=== PATIENT | male | born 1980 | race Caucasian/White ===

== ENCOUNTER 2018-06-20 11:33 | Emergency (ER) | payer SELFPAY ==
[~2018-06-20] VITALS: Ht 177.8 cm; Wt 68.5 kg
--- NOTE | ~2018-06-20 | EKG ---
[place], [place] ELECTROCARDIOGRAM REPORT NAME: EFFIE HU UNIT #: [id number] ROOM: DOCTOR: EPIPHANY DRAFT REPORT BIRTHDATE: [birth year] [facility] Test Date: 2018-06-20 Test Time: 11:53:02 Pat Name: EFFIE HU Department: Room: [facility] Gender: M Transit Planning Manager: Justina Bauer : 1980 Requested By: TONYA SIERRA Order Number: [id number] Reading MD: Nakul Milligan MD Measurements Intervals [place] Rate: 109 P: 46 ID: 151 QRS: 40 QRSD: 105 T: -16 QT: 373 QTc: 503 Interpretive Statements Sinus tachycardia Probable left atrial enlargement Lateral infarct, acute (LAD) Probable anteroseptal infarct, recent Prolonged QT interval Electronically Signed On 06-22-2018 9:47:35 PST by Nakul Milligan MD CM:EKGRPT:ELECTROCARDIOGRAM REPORT [id number] TONYA RODAS DRAFT REPORT TONYA SIERRA DO
--- NOTE | ~2018-06-20 | EKG ---
[place], [place] ELECTROCARDIOGRAM REPORT NAME: EFFIE HU UNIT #: [id number] ROOM: DOCTOR: EPIPHANY DRAFT REPORT BIRTHDATE: [birth year] [facility] Test Date: 2018-06-20 Test Time: 12:59:35 Pat Name: EFFIE HU Department: Room: [facility]C Gender: M Water Use Inspector: Noam Lennon : 1980 Requested By: TONYA SIERRA Order Number: [id number] Reading MD: Nakul Milligan MD Measurements Intervals [place] Rate: 112 P: 62 SC: 163 QRS: 37 QRSD: 107 T: -27 QT: 365 QTc: 499 Interpretive Statements Sinus tachycardia Left atrial enlargement Lateral infarct, acute (LAD) Probable anteroseptal infarct, recent Baseline wander in lead(s) V6 Electronically Signed On 06-22-2018 9:47:48 PST by Nakul Milligan MD CM:EKGRPT:ELECTROCARDIOGRAM REPORT [id number] TONYA RODAS DRAFT REPORT TONYA SIERRA DO
[2018-06-20 12:04] LABS: BASO # 0.1 10*3/uL (0.0-0.1); BASO % 0.3 % (0.0-1.0); EOS # 0.1 10*3/uL (0.0-0.4); EOS % 0.7 % (1.0-4.0); HEMATOCRIT 46.6 % (42.0-52.0); HEMOGLOBIN 15.5 g/dl (14.0-18.0); LYMPH # 1.6 10*3/uL (1.3-4.4); LYMPH % 10.7 % (27.0-41.0); MEAN CELL VOLUME 90.8 fl (80.0-94.0); MEAN CORPUSCULAR HGB 30.2 pg (27.0-31.0); MEAN CORPUSCULAR HGB CONC 33.3 g/dl (33.0-37.0); MEAN PLATELET VOLUME 10.1 fl (9.6-12.3); MONO # 0.9 10*3/uL (0.1-1.0); MONO % 6.1 % (3.0-9.0); NEUT # 12.5 10*3/uL (2.3-7.9); NEUT % 81.4 % (47.0-73.0); PLATELET COUNT AUTOMATED 398 10*3/uL (130-400); RED BLOOD COUNT 5.13 10*6/uL (4.50-5.90); RED CELL DISTRI WIDTH 12.7 % (0-14.5); WHITE BLOOD COUNT 15.4 10*3/uL (4.8-10.8)
[2018-06-20 12:12] LABS: ACT PARTIAL THROMBO TIME 43.3 SECONDS (20.8-31.5); INTERNATIONAL NORM RATIO 0.9 (2.0-3.5)
[2018-06-20 12:29] LABS: ALBUMIN 3.2 gm/dl (3.1-4.5); ALKALINE PHOSPHATASE 96 U/L (45-117); BUN 20 mg/dl (7-24); CHLORIDE 101 mmol/L (98-107); CREATININE 1.16 mg/dL (0.70-1.30); LIPASE 49 U/L (73-393); POTASSIUM 4.5 mmol/L (3.5-5.1); SGOT/AST 8 IU/L (3-35); SGPT/ALT 16 U/L (12-78); SODIUM 131 mmol/L (136-145); TOTAL PROTEIN 8.6 gm/dL (6.4-8.2)
[2018-08-30] MEDS ORDERED: ASPIRIN ADULT L81 M2 PO (20:43)
[2018-08-30] MEDS ORDERED: LISINOPRIL5 MG PO (20:44)
[2018-08-30] MEDS ORDERED: CLOPIDOGREL75 MG PO (20:44)
[2018-08-30] MEDS ORDERED: ALDACTONE25 MG PO (20:44)
[2018-08-30] MEDS ORDERED: ATORVASTATIN CA80 M1 PO (20:45)
[2018-08-30] MEDS ORDERED: METOPROLOL SUC100 M1 PO (20:45)
[2018-08-30] MEDS ORDERED: METOPROLOL SUCC50 M1 PO (20:46)
[2018-08-30] MEDS ORDERED: BASAG SOL SC (20:48)
[2018-08-30] MEDS ORDERED: NOVOLOG100 UNIT/1 SQ (20:55)
[2018-09-01] MEDS ORDERED: LISINOPRIL2.5 MG PO (13:05)
[2018-09-01] MEDS ORDERED: METOPROLOL SUCC25 M2 PO (13:05)
[2018-09-01] MEDS ORDERED: ALDACTONE25 MG PO (13:05)
== END 2018-06-20 13:50 | disposition short-term general hospital (02) ==
LOC: ED 11:33
PROVIDERS: Emergency Medicine
DX: I21.3 ST elevation (STEMI) myocardial infarction of unspecified site (principal); E11.10 Type 2 diabetes mellitus with ketoacidosis without coma; Z90.49 Acquired absence of other specified parts of digestive tract

== ENCOUNTER 2018-10-03 13:22 | Inpatient (IN) | payer SELFPAY ==
[2018-10-03] VITALS (7 sets, daily range): BP systolic 112–132; BP diastolic 79–92
[~2018-10-03] VITALS: Ht 177.8 cm; Wt 68.9 kg
--- NOTE | ~2018-10-03 | EKG ---
[place], [place] ELECTROCARDIOGRAM REPORT NAME: EFFIE HU UNIT #: [id number] ROOM: 519 DOCTOR: ANNA DRAFT REPORT BIRTHDATE: [birth year] [facility] Test Date: 2018-10-03 Test Time: 19:46:13 Pat Name: EFFIE HU Department: Room: 519 Gender: M Internet Manager: : 1980 Requested By: TONYA SIERRA Order Number: [id number] Reading MD: Michael Lewis MD Measurements Intervals [place] Rate: 106 P: 52 OR: 168 QRS: -7 QRSD: 109 T: 64 QT: 362 QTc: 481 Interpretive Statements Sinus tachycardia ST elevation suggests acute pericarditis Borderline prolonged QT interval Baseline wander in lead(s) I,II,III,aVR,aVL,V1,V2,V6 Compared to ECG 08/30/2018 22:42:13 Sinus rhythm no longer present ST (T wave) deviation still present Electronically Signed On 10-04-2018 15:46:13 PDT by Michael Lewis MD CM:EKGRPT:ELECTROCARDIOGRAM REPORT [id number] TONYA RODAS DRAFT REPORT TONAY SIERRA DO
--- NOTE | ~2018-10-03 | EKG ---
[place], [place] ELECTROCARDIOGRAM REPORT NAME: EFFIE HU UNIT #: [id number] ROOM: 519 DOCTOR: ANNA DRAFT REPORT BIRTHDATE: [birth year] [facility] Test Date: 2018-10-03 Test Time: 16:02:01 Pat Name: EFFIE HU Department: Room: 519 Gender: M Manager Business Information: : 1980 Requested By: TONYA SIERRA Order Number: [id number] Reading MD: Michael Lewis MD Measurements Intervals [place] Rate: 108 P: 54 NV: 166 QRS: 0 QRSD: 106 T: 65 QT: 354 QTc: 475 Interpretive Statements Sinus tachycardia Borderline low voltage, extremity leads Consider anterolateral infarct ST elevation suggests acute pericarditis Baseline wander in lead(s) II,III,aVR,aVF,V3,V4 Compared to ECG 08/30/2018 22:42:13 Myocardial infarct finding now present Sinus rhythm no longer present ST (T wave) deviation still present Electronically Signed On 10-04-2018 15:45:03 PDT by Michael Lewis MD CM:EKGRPT:ELECTROCARDIOGRAM REPORT [id number] TONYA RODAS DRAFT REPORT TONYA SIERRA DO
--- NOTE | ~2018-10-03 | EKG ---
[place], [place] ELECTROCARDIOGRAM REPORT NAME: EFFIE HU UNIT #: [id number] ROOM: 519 DOCTOR: ANNA DRAFT REPORT BIRTHDATE: [birth year] [facility] Test Date: 2018-10-03 Test Time: 13:33:07 Pat Name: EFFIE HU Department: Room: 519 Gender: M Gut Puller: : 1980 Requested By: TONYA SIERRA Order Number: [id number] Reading MD: Michael Lewis MD Measurements Intervals [place] Rate: 101 P: 58 ND: 189 QRS: -9 QRSD: 106 T: 64 QT: 365 QTc: 474 Interpretive Statements Sinus tachycardia Probable left atrial enlargement Anteroseptal infarct, age indeterminate Lateral leads are also involved Baseline wander in lead(s) III Compared to ECG 08/30/2018 22:42:13 Myocardial infarct finding now present Sinus rhythm no longer present ST (T wave) deviation no longer present Electronically Signed On 10-04-2018 15:43:52 PDT by Michael Lewis MD CM:EKGRPT:ELECTROCARDIOGRAM REPORT [id number] TONYA RODAS DRAFT REPORT TONYA SIERRA DO
[~2018-10-03 13:22] MED LIST: ALDACTONE25 MG PO; ASPIRIN ADULT L81 M2 PO; ATORVASTATIN CA80 M1 PO; BASAG SOL SC; CLOPIDOGREL75 MG PO; LISINOPRIL2.5 MG PO; LISINOPRIL5 MG PO; METOPROLOL SUC100 M1 PO; METOPROLOL SUCC25 M2 PO; METOPROLOL SUCC50 M1 PO; NOVOLOG100 UNIT/1 SQ
--- NOTE | 2018-10-03 13:28 | NUR ---
PT NOW C/O CHEST PAIN 10/31 WILL INITIATE ACS
[2018-10-03 13:48] LABS: BASO % 0.1 % (0.0-1.0); EOS # 0.1 10*3/uL (0.0-0.4); EOS % 1.2 % (1.0-4.0); HEMATOCRIT 43.3 % (42.0-52.0); LYMPH # 1.4 10*3/uL (1.3-4.4); LYMPH % 16.1 % (27.0-41.0); MEAN CELL VOLUME 83.6 fl (80.0-94.0); MEAN CORPUSCULAR HGB CONC 34.6 g/dl (33.0-37.0); MEAN PLATELET VOLUME 9.3 fl (9.6-12.3); MONO # 0.8 10*3/uL (0.1-1.0); MONO % 8.8 % (3.0-9.0); NEUT # 6.4 10*3/uL (2.3-7.9); NEUT % 73.6 % (47.0-73.0); PLATELET COUNT AUTOMATED 305 10*3/uL (130-400); RED BLOOD COUNT 5.18 10*6/uL (4.50-5.90); RED CELL DISTRI WIDTH 12.3 % (0-14.5); WHITE BLOOD COUNT 8.7 10*3/uL (4.8-10.8)
[2018-10-03 14:00] LABS: INTERNATIONAL NORM RATIO 0.9 (2.0-3.5)
[2018-10-03 14:05] LABS: ALBUMIN 4.1 gm/dl (3.1-4.5); ALKALINE PHOSPHATASE 81 U/L (45-117); BUN 12 mg/dl (7-24); CHLORIDE 98 mmol/L (98-107); CREATININE 0.73 mg/dL (0.70-1.30); LIPASE 31 U/L (73-393); POTASSIUM 3.9 mmol/L (3.5-5.1); SGOT/AST 12 IU/L (3-35); SGPT/ALT 18 U/L (12-78); SODIUM 136 mmol/L (136-145); TOTAL PROTEIN 8.4 gm/dL (6.4-8.2)
[2018-10-03 14:06] LABS: TROPONIN I < 0.015 ng/ml (<0.045)
--- NOTE | 2018-10-03 16:50 | NUR ---
CCA 37, admitted to , under the services of SEBASTIAN Bill DO with a diagnosis of DIZZINESS, HYPOTENSION, CHEST PAIN R/O LA. Chief complaint is DIZZINESS, HYPOTENSION. Patient arrived via ambulatory from ER. Monitor applied. Initial assessment completed. Vital signs taken and recorded. SEBASTIAN BILL DO notified of admission to the unit. Orders received. See assessment for past medical history, medications and allergies. Patient and/or family oriented to unit. [address] visitation policy reviewed. Clothing/patient valuable form completed. PAIGE RODRIGUEZ
--- NOTE | 2018-10-03 17:00 | NUR ---
MED REC UPDATED PER POLICY.
--- NOTE | 2018-10-03 17:30 | NUR ---
ORTHO'S PERFORMED PER ORDER. SUPINE BP 111/79. HR 111. SITTING BP 114/80. HR 115. STANDING BP 80/52. HR 120'S. PT SYMPTOMATIC WITH STANDING. WILL CONTINUE TO MONTIOR. IVF ORDERED.
--- NOTE | 2018-10-03 17:52 | NUR ---
'S ANSWERING SERVICE NOTIFIED OF CONSULT.
--- NOTE | 2018-10-03 17:54 | NUR ---
NOTIFIED REGARDING POSITIVE ORTHO'S.
--- NOTE | 2018-10-03 20:45 | NUR ---
PATIENT IS RESTING IN BED WITH EASY AND REGULAR RESPERS ON ROOM AIR. ASSESSMENT IS COMPLETE WITH NO C/O OR S/S OF DISTRESS NOTED AT THIS TIME. BED IS LOW, LOCKED, AND CALL LIGHT IS WITHIN REACH. SEE SHIFT ASSESSMENT. Neurological: awake,alert,oriented Respiratory: easy, regular,no distress Breath sounds: clear t/o all lung valente Cough: none noted on assessment Cardiovascular: no problem: NSR/ST per cm, denies cp/pressure, no edema, pp+ Gastrointestinal: Normoactive x4 quads, denies n/v/d/c. abd soft, nt/nd Genito/Urinary: no problem: denies dysuria Musculoskeketal: Ambulatory: steady gait, skin w/d and intact. BS: 240 MICHAEL GONZALEZ A
--- NOTE | 2018-10-03 21:14 | NUR ---
DR. HEATH SIERRA CONTACTED IN REGARDS TO CONTINUING HOME MEDICATIONS.
--- NOTE | 2018-10-03 21:50 | NUR ---
2200 MEDICATIONS GIVEN AT THIS TIME, PATIENT REFUSED LANTUS. CALL LIGHT IS WITHIN REACH.
[2018-10-04] VITALS: BP 90/51
--- NOTE | 2018-10-04 01:58 | NUR ---
Patient sleeping. Respirations relaxed and easy. Siderails up x2. Call light within reach. MICHAEL GONZALEZ
[2018-10-04 06:59] LABS: BASO % 0.5 % (0.0-1.0); EOS # 0.1 10*3/uL (0.0-0.4); EOS % 2.5 % (1.0-4.0); LYMPH # 1.7 10*3/uL (1.3-4.4); LYMPH % 29.4 % (27.0-41.0); MEAN CELL VOLUME 83.6 fl (80.0-94.0); MEAN CORPUSCULAR HGB CONC 34.7 g/dl (33.0-37.0); MEAN PLATELET VOLUME 9.7 fl (9.6-12.3); MONO # 0.7 10*3/uL (0.1-1.0); NEUT # 3.1 10*3/uL (2.3-7.9); NEUT % 55.4 % (47.0-73.0); PLATELET COUNT AUTOMATED 271 10*3/uL (130-400); RED BLOOD COUNT 4.14 10*6/uL (4.50-5.90); RED CELL DISTRI WIDTH 12.3 % (0-14.5); WHITE BLOOD COUNT 5.7 10*3/uL (4.8-10.8)
[2018-10-04 07:01] LABS: HEMATOCRIT 34.6 % (42.0-52.0)
--- NOTE | 2018-10-04 07:06 | NUR ---
EFFIE HU [id number] Please refer to the physician's history and physical for past medical history, comorbid conditions, and allergies. Diagnosis: DIZZINESS HYPOTENSION CHEST PAIN, RULE OUT Ang Score: 20,LOW OR NO RISK WOUND DESCRIPTIONS: Wound Number: 1 Location of the wound: right plantar lateral aspect of foot Thickness: Full Size: 0.3cm x 0.3cm x 0.2cm Tunneling: none Undermining: none Sinus Tract: none Presence of Exudate: Serosanguineous Amount: Light Color: Yellow, red Odor: None Periwound Skin Appearance: callus Wound edges: approximated Pain (associated with wound): none at time of assessment How does patient state this happened? pt stated this happened back in june when he tried to walk from [place] to [place] he developed the area Surface the patient is resting on: Isoflex SKIN PREVENTION RECOMMENDATION: 1. Pressure redistribution support surface as appropriate 2. Elevate heels 3. Remove boots/TEDS every shift and reapply 4. Head of bed 30 degrees as tolerated 5. Assess nutrition and hydration 6. Manage moisture 7. Avoid the use of containment devices while in bed 8. Use absorptive products on surfaces limit layers of linens on bed 9. Turn and reposition every 1-2 hours in bed and every 1 hour in chair as tolerated 10. Weight shifts every 15 minutes while up in chair 11. Offloading with pillows or device to keep heels elevated off bed 12. Monitor skin at least every shift 13. Inspect under medical devices twice a day WOUND TREATMENT RECOMMENDATIONS: Imaging studies to right foot due to wound. Consult podiatry due to non-healing right foot wound. Full thickness guidelines: Cleanse right plantar aspect of foot with nss and apply sureprep around the wound therahoney to wound bed and cover with optifoam gentle.
[2018-10-04 07:08] LABS: BUN 19 mg/dl (7-24); CHLORIDE 102 mmol/L (98-107); POTASSIUM 3.6 mmol/L (3.5-5.1); SGPT/ALT 15 U/L (12-78); SODIUM 139 mmol/L (136-145)
[2018-10-04 07:13] LABS: ALKALINE PHOSPHATASE 66 U/L (45-117); CREATININE 0.55 mg/dL (0.70-1.30); PHOSPHOROUS 4.5 mg/dL (2.5-4.9); SGOT/AST 7 IU/L (3-35); TOTAL PROTEIN 6.5 gm/dL (6.4-8.2)
[2018-10-04 07:51] VITALS: BP 120/79
--- NOTE | 2018-10-04 08:00 | NUR ---
Dr. Gonzalez notified of wound care recommendations.
--- NOTE | 2018-10-04 08:25 | NUR ---
'S OFFICE CALLED AT THIS TIME REGARDING POSSIBLE STRESS TEST TODAY. AWAITING RETURN PHONE CALL.
--- NOTE | 2018-10-04 09:22 | NUR ---
OKAY FOR PATIENT TO EAT BREAKFAST PER . NO STRESS TEST TODAY.
[2018-10-04 11:19] VITALS: BP 126/84
--- NOTE | 2018-10-04 12:12 | NUR ---
Leadership Coach in to talk to patient. Patient states lives at HOME with ALONE, PARENTS LIVE NEXT DOOR. There are 2 steps in the home. Physician: [facility] Pharmacy: [facility] [place] health services: NONE Patient's level of ADLs: INDEPENDENT Patient has working utilities: YES DME: NONE Follow-up physician's appointment after d/c: WILL BE MADE BY HOSPITALIST NURSE DIRECTOR ON DISCHARGE Does patient want to access PORTAL?: NO Discharge plan PT STATES HE LIVES AT HOME ALONE AND IS INDEPENDENT IN CARE. DENIES ANY NEEDS WHEN DISCHARGED. WILL CONTINUE TO FOLLOW. STATES HE WILL HAVE A RIDE HOME.. STEPHANIE LEWIS
[2018-10-04 16:00] VITALS: BP 130/81
[2018-10-04 20:00] VITALS: BP 134/87
[2018-10-05] VITALS: BP 118/81
[2018-10-05 12:00] VITALS: BP 130/73
--- NOTE | 2018-10-05 13:50 | NUR ---
PT CONTINUES TO DENY NEEDS AT HOME. WILL CONTINUE TO FOLLOW.
--- NOTE | 2018-10-05 14:03 | NUR ---
PATIENT DISCHARGED FROM FLOOR. DISCHARGE PAPERWORK WITH PATIENT. NO SIGNS OR SYMPTOMS OF DISTRESS. IV CATHETER REMOVED AND INTACT. TELE MONITOR REMOVED AND ACCOUNTED FOR. AMBULATORY AND ESCORTED TO [facility].
== END 2018-10-05 14:03 | disposition home or self-care (01) | DRG 315 ==
LOC: ED 13:22 → EDHOLD 15:25 → 5E 15:25
PROVIDERS: Emergency Medicine; Registered Nurse; ADMIT Internal Medicine
DX: I95.9 Hypotension, unspecified (principal); I50.32 Chronic diastolic (congestive) heart failure; I25.10 Atherosclerotic heart disease of native coronary artery without angina pectoris; L97.511 Non-pressure chronic ulcer of other part of right foot limited to breakdown of skin; E10.65 Type 1 diabetes mellitus with hyperglycemia; E78.5 Hyperlipidemia, unspecified; I11.0 Hypertensive heart disease with heart failure; R07.9 Chest pain, unspecified; I25.2 Old myocardial infarction; Z79.4 Long term (current) use of insulin; Z79.82 Long term (current) use of aspirin; Z90.49 Acquired absence of other specified parts of digestive tract; Z95.5 Presence of coronary angioplasty implant and graft; Z83.3 Family history of diabetes mellitus; Z82.49 Family history of ischemic heart disease and other diseases of the circulatory system; Z83.6 Family history of other diseases of the respiratory system; Z79.84 Long term (current) use of oral hypoglycemic drugs

== ENCOUNTER 2019-10-13 17:12 | Emergency (ER) | payer SELFPAY ==
[~2019-10-13] VITALS: Ht 175.2 cm; Wt 65.8 kg
[2019-10-13 17:35] LABS: HEMATOCRIT 40.5 % (42.0-52.0); MEAN CELL VOLUME 93.8 fl (80.0-94.0); MEAN CORPUSCULAR HGB CONC 33.1 g/dl (33.0-37.0); MEAN PLATELET VOLUME 9.8 fl (9.6-12.3); PLATELET COUNT AUTOMATED 373 10*3/uL (130-400); RED BLOOD COUNT 4.32 10*6/uL (4.50-5.90); RED CELL DISTRI WIDTH 11.9 % (0-14.5); WHITE BLOOD COUNT 12.8 10*3/uL (4.8-10.8)
[2019-10-13 17:47] LABS: ACT PARTIAL THROMBO TIME 29.3 SECONDS (20.0-32.1); INTERNATIONAL NORM RATIO 0.9 (2.0-3.5)
[2019-10-13 17:51] LABS: ALBUMIN 2.5 gm/dl (3.1-4.5); ALKALINE PHOSPHATASE 91 U/L (45-117); BUN 24 mg/dl (7-24); CHLORIDE 100 mmol/L (98-107); CREATININE 1.29 mg/dL (0.70-1.30); POTASSIUM 4.7 mmol/L (3.5-5.1); SGOT/AST 6 IU/L (3-35); SGPT/ALT 9 U/L (12-78); SODIUM 130 mmol/L (136-145); TOTAL PROTEIN 7.9 gm/dL (6.4-8.2)
[2019-10-13 17:53] LABS: PLATELET SUFFICIENCY NORMAL (NORMAL); TOTAL CELLS COUNTED 100 #CELLS; TROPONIN I < 0.015 ng/ml (<0.045)
== END 2019-10-13 18:10 | disposition short-term general hospital (02) ==
LOC: ED 17:12
PROVIDERS: Emergency Medicine
DX: I21.3 ST elevation (STEMI) myocardial infarction of unspecified site (principal); E11.10 Type 2 diabetes mellitus with ketoacidosis without coma; I25.10 Atherosclerotic heart disease of native coronary artery without angina pectoris; I11.0 Hypertensive heart disease with heart failure; I50.30 Unspecified diastolic (congestive) heart failure; E78.5 Hyperlipidemia, unspecified; Z79.899 Other long term (current) drug therapy; Z79.82 Long term (current) use of aspirin; Z79.4 Long term (current) use of insulin

== ENCOUNTER 2019-10-22 14:12 | Inpatient (IN) | payer SELFPAY ==
[2019-10-22] VITALS (10 sets, daily range): BP systolic 80–97; BP diastolic 50–64
[~2019-10-22] VITALS: Ht 172.7 cm; Wt 80.3 kg
[2019-10-22 14:56] LABS: BASO % 0.3 % (0.0-1.0); EOS # 0.1 10*3/uL (0.0-0.4); HEMATOCRIT 29.5 % (42.0-52.0); LYMPH # 1.5 10*3/uL (1.3-4.4); LYMPH % 14.6 % (27.0-41.0); MEAN CELL VOLUME 93.7 fl (80.0-94.0); MEAN CORPUSCULAR HGB 30.2 pg (27.0-31.0); MEAN CORPUSCULAR HGB CONC 32.2 g/dl (33.0-37.0); MEAN PLATELET VOLUME 9.4 fl (9.6-12.3); MONO # 1.2 10*3/uL (0.1-1.0); MONO % 11.4 % (3.0-9.0); NEUT # 7.6 10*3/uL (2.3-7.9); PLATELET COUNT AUTOMATED 364 10*3/uL (130-400); RED BLOOD COUNT 3.15 10*6/uL (4.50-5.90); RED CELL DISTRI WIDTH 11.8 % (0-14.5); WHITE BLOOD COUNT 10.5 10*3/uL (4.8-10.8)
[2019-10-22 15:11] LABS: ACT PARTIAL THROMBO TIME 29.9 SECONDS (20.0-32.1)
[2019-10-22 15:13] LABS: ALBUMIN 1.9 gm/dl (3.1-4.5); ALKALINE PHOSPHATASE 192 U/L (45-117); BUN 51 mg/dl (7-24); CHLORIDE 93 mmol/L (98-107); CREATININE 1.35 mg/dL (0.70-1.30); LIPASE 21 U/L (73-393); POTASSIUM 4.1 mmol/L (3.5-5.1); SGOT/AST 14 IU/L (3-35); SGPT/ALT 20 U/L (12-78); SODIUM 123 mmol/L (136-145); TOTAL PROTEIN 6.8 gm/dL (6.4-8.2)
[2019-10-22 15:14] LABS: TROPONIN I < 0.015 ng/ml (<0.045)
--- NOTE | 2019-10-22 18:13 | NUR ---
A 38 yr old male, admitted to [facility], under the services of GORDON Richard DO with a diagnosis of DIZZINESS, GI BLEED, AND HYPOTENSION. Chief complaint is weakness and fatigue since starting new meds on discharge from [facility] after a heart cath. Patient arrived via stretcher from ER. Monitor applied. Initial assessment completed. Vital signs taken and recorded. See assessment for past medical history, medications and allergies. Patient and/or family oriented to unit. [facility] visitation policy reviewed. Clothing/patient valuable form completed. SHANE OLMSTEAD
[2019-10-22] MEDS ORDERED: ZESTRIL,PRINIVIL5 MG PO (18:22)
[2019-10-22] MEDS ORDERED: ALDACTONE25 M1 PO (18:24)
[2019-10-22] MEDS ORDERED: NITROSTAT0.4 MG SL (18:25)
[2019-10-22] MEDS ORDERED: HUMALOG JU100 UNIT/1 SQ (18:28)
--- NOTE | 2019-10-22 18:36 | NUR ---
MED REC IS UP TO DATE & REVIEWED WITH THE PATIENT
--- NOTE | 2019-10-22 18:56 | NUR ---
Dr. Pryor was notified of consult. Message was left w/ ans service of Dr. Milligan as to consult.
--- NOTE | 2019-10-22 19:52 | NUR ---
24 HR chart check completed.
--- NOTE | 2019-10-22 20:00 | NUR ---
Patient lying in bed, has complaint of feeling weak. Denies any chest pain. Scd's applied. Patient given boxed lunch due to not eating all day. Patient states he feels dizzy with he gets up out of bed. Patient told to use call light and not get up. Patient sinus on the monitor and hr 80's. BP 90's/50's. Patient left with call light in reach.
[2019-10-22 20:11] LABS: BUN 50 mg/dl (7-24); CHLORIDE 96 mmol/L (98-107); CREATININE 1.07 mg/dL (0.70-1.30); POTASSIUM 3.7 mmol/L (3.5-5.1); SODIUM 125 mmol/L (136-145)
--- NOTE | 2019-10-22 23:18 | NUR ---
Notified Dr. Dewey that patients blood pressure was 80/50(M). and that patient stated he felt like he had to pee but wasnt able. New orders received for 0.9ns bolus of 250 and run the rest at 125/hr.
[2019-10-23] VITALS (82 sets, daily range): BP systolic 70–112; BP diastolic 42–81
--- NOTE | 2019-10-23 00:42 | NUR ---
Reassess of blood pressure, 70/42. notified Dr. Dewey, he will be up to evaulate the patient.
--- NOTE | 2019-10-23 01:20 | NUR ---
Levophed started. Patients inital bp is 90/52, patient also just got off the bedside commode.
[2019-10-23 06:24] LABS: ALBUMIN 1.7 gm/dl (3.1-4.5); BASO % 0.3 % (0.0-1.0); BUN 52 mg/dl (7-24); CHLORIDE 95 mmol/L (98-107); EOS # 0.2 10*3/uL (0.0-0.4); EOS % 1.1 % (1.0-4.0); HEMATOCRIT 29.9 % (42.0-52.0); LYMPH # 1.6 10*3/uL (1.3-4.4); LYMPH % 11.7 % (27.0-41.0); MEAN CELL VOLUME 94.3 fl (80.0-94.0); MEAN CORPUSCULAR HGB 31.2 pg (27.0-31.0); MEAN CORPUSCULAR HGB CONC 33.1 g/dl (33.0-37.0); MEAN PLATELET VOLUME 9.6 fl (9.6-12.3); MONO # 1.3 10*3/uL (0.1-1.0); MONO % 9.9 % (3.0-9.0); NEUT # 10.3 10*3/uL (2.3-7.9); NEUT % 76.3 % (47.0-73.0); RED BLOOD COUNT 3.17 10*6/uL (4.50-5.90); RED CELL DISTRI WIDTH 11.7 % (0-14.5); SODIUM 125 mmol/L (136-145); WHITE BLOOD COUNT 13.5 10*3/uL (4.8-10.8)
[2019-10-23 06:25] LABS: PLATELET COUNT AUTOMATED 544 10*3/uL (130-400)
[2019-10-23 06:30] LABS: ALKALINE PHOSPHATASE 175 U/L (45-117); CHOLESTEROL 64 mg/dL (<200); CREATININE 1.22 mg/dL (0.70-1.30); FREE T4 1.55 ng/dl (0.76-1.46); HDL CHOLESTEROL 17 mg/dl (40-60); LDL CHOLESTEROL 21 mg/dL (9-159); SGOT/AST 10 IU/L (3-35); SGPT/ALT 18 U/L (12-78); TOTAL PROTEIN 6.3 gm/dL (6.4-8.2); TRIGLYCERIDES 129 mg/dl (<150); VLDL CHOLESTEROL 26 mg/dL (6-40)
[2019-10-23 06:54] LABS: ACT PARTIAL THROMBO TIME 30.9 SECONDS (20.0-32.1)
--- NOTE | 2019-10-23 08:25 | NUR ---
DR MARTIN HERE TO SPEAK WITH PT R/T INSERTION OF A CENTRAL LINE. PT AGREED. INFORMED CONSENT SIGNED BY PT.
--- NOTE | 2019-10-23 09:20 | NUR ---
CENTRAL LINE COMPLETED. STAT CXR ORDERED.
--- NOTE | 2019-10-23 10:06 | NUR ---
EFFIE HU [id number] Please refer to the physician's history and physical for past medical history, comorbid conditions, and allergies. Diagnosis: DIZZINESS,GI BLEED,HYPOTENSION Ang Score: ,LOW OR NO RISK WOUND DESCRIPTIONS: Wound Number: 1 Location of the wound: plantar aspect of right foot Type of wound: unstageable Thickness: Full Size: 1.2cm x 1.5cm x <0.1cm Tunneling: none Undermining: none Sinus Tract: none Presence of Exudate: none Amount: None Color: Black, christianson, yellow Odor: None Periwound Skin Appearance: Normal Wound edges: approximated Pain (associated with wound): none at time of assessment How does patient state this happened? pt states he had this area before it healed open and it reopened in June when he was working out at the [facility]. patient states he has no insurance so he is unable to follow up anywhere.He states he will make an appointment once his insurance is avaiable Surface the patient is resting on: Isoflex SKIN PREVENTION RECOMMENDATION: 1. Pressure redistribution support surface as appropriate 2. Elevate heels 3. Remove boots/TEDS every shift and reapply 4. Head of bed 30 degrees as tolerated 5. Assess nutrition and hydration 6. Manage moisture 7. Avoid the use of containment devices while in bed 8. Use absorptive products on surfaces limit layers of linens on bed 9. Turn and reposition every 1-2 hours in bed and every 1 hour in chair as tolerated 10. Weight shifts every 15 minutes while up in chair 11. Offloading with pillows or device to keep heels elevated off bed 12. Monitor skin at least every shift 13. Inspect under medical devices twice a day WOUND TREATMENT RECOMMENDATIONS: Consult podiatry for possible debridement of right plantar aspect of foot. Arterial studies to bilateral lower extremities due to non-healing wound Unstageable guidelines: Cleanse right plantar aspect of foot with nss and paint area with betadine and cover with dsd daily and prn for soiling.
--- NOTE | 2019-10-23 10:30 | NUR ---
DR MARQUES IN TO SEE PT.
--- NOTE | 2019-10-23 10:43 | NUR ---
Dr. Mathews notified of wound care recommendations
--- NOTE | 2019-10-23 12:00 | NUR ---
Check Airman in to talk to patient. Patient states lives at home with his mother who he helps take care of. There are 0 steps in the home. Physician: resident [facility]. He states he has an appt on the . Pharmacy: [facility] Home health services: none Patient's level of ADLs: independent Patient has working utilities: yes DME: none Follow-up physician's appointment after d/c: will be made by the hospitalist nurse director upon discharge Does patient want to access PORTAL?: no Discharge plan discussed with patient. He lives at home and helps take care of his mother. He is independent in his ADLs and ambulation. 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 Asked if Yari from [employer] has spoke to him and he states she had. When medically stable he will be discharged to home. He denies any home needs. He is unsure at this time who will provide transportation discharge. ZOHAIB GARCIA
--- NOTE | 2019-10-23 12:30 | NUR ---
DR ARCEO IN TO SEE PT. STATED WE WOULD TREAT PT MEDICALLY FOR NOW DUE TO RECENT CARDIAC EVENT.
--- NOTE | 2019-10-23 13:36 | NUR ---
Pt bladder scanned for >999cc of urine. Dr Lopes ordered for baxter insertion. Medical student unable to pass #16 indonesian batxer. #16 indonesian cudae baxter inserted with 1000cc dark anup urine returned in baxter. baxter clamped. Urine specimans sent per order.
--- NOTE | 2019-10-23 13:41 | NUR ---
DR LEE NOTIFIED OF PODIATRY CONSULT. HE STATED THEY WILL SEE HIM LATER THIS AFTERNOON.
[2019-10-23 14:04] LABS: BILIRUBIN 1+ (NEGATIVE); BLOOD NEGATIVE (NEGATIVE); CLARITY CLOUDY (CLEAR); COLOR BROWN (YELLOW); GLUCOSE 2+ (NEGATIVE); KETONE NEGATIVE (NEGATIVE); LEUKO ESTERASE NEGATIVE (NEGATIVE); NITRITE NEGATIVE (NEGATIVE); UROBILINOGEN 0.2 E.U./dl (0.2-1.0)
[2019-10-23 14:05] LABS: BACTERIA 2+
--- NOTE | 2019-10-23 16:00 | NUR ---
DR MARQUES CALLED AND SPOKE WITH DR MARTIN. DR MARQUES STATED PT NEEDS TRANSFERED TO [facility]. R/T ECHO RESULTS. DR MARTIN NOTIFIED PT.
[2019-10-23] MEDS ORDERED: VITAMIN D350 MC2 PO (16:25)
[2019-10-23] MEDS ORDERED: COLCHICINE0.6 M2 PO (16:25)
[2019-10-23 16:53] LABS: ALBUMIN 2.2 gm/dl (3.1-4.5); BUN 51 mg/dl (7-24); CHLORIDE 98 mmol/L (98-107); POTASSIUM 4.2 mmol/L (3.5-5.1); SODIUM 126 mmol/L (136-145)
--- NOTE | 2019-10-23 18:20 | NUR ---
DISCHARGE PHOTOS TAKEN. PT SIGNED TRANSFER AND DISCHARGE PAPERS. PT DENIES COMPLAINTS. LEVOPHED CONTINUIES AT 4 MICS/MIN. WILL CONTINUE TO MONITOR PT.
--- NOTE | 2019-10-23 20:00 | NUR ---
PT RESTING IN BED TALKING ON PHONE, A&OX3, PLEASANT AND COOPERATIVE. RESP NONLABORED. NO ACUTE DISTRESS NOTED AT THIS TIME. DENIES ANY PAIN OR DISCOMFORT. RIGHT IJ PATENT, DRESSING DRY AND INTACT, LEVOPHED INFUSING WITHOUT DIFFICULTY. RIVERA PATENT FOR DARK GENEVIEVE URINE. NO S/S OF HYPO/HYPERGLYCEMIA NOTED.
--- NOTE | 2019-10-23 21:15 | NUR ---
[facility] ALL PERSONAL BELONINGS AND PAPERWORK SENT. REPORT CALLED TO TAM SAMANIEGO.
== END 2019-10-23 21:15 | disposition short-term general hospital (02) | DRG 314 ==
LOC: ED 14:12 → EDHOLD 16:48 → ICCU 16:48
PROVIDERS: Hospitalist; Internal Medicine Nephrology; Nurse Practitioner Family; ADMIT Family Medicine
PROC: B54MZZA Ultrasonography of Right Upper Extremity Veins, Guidance (ICD-10-PCS; principal; 2019-10-23)
PROC: 05HY33Z Insertion of Infusion Device into Upper Vein, Percutaneous Approach (ICD-10-PCS; principal; 2019-10-23)
DX: I95.9 Hypotension, unspecified (principal); E43 Unspecified severe protein-calorie malnutrition; E87.1 Hypo-osmolality and hyponatremia; N17.9 Acute kidney failure, unspecified; I50.32 Chronic diastolic (congestive) heart failure; I31.3 Pericardial effusion (noninflammatory); K92.1 Melena; R74.8 Abnormal levels of other serum enzymes; E10.40 Type 1 diabetes mellitus with diabetic neuropathy, unspecified; L89.891 Pressure ulcer of other site, stage 1; D64.9 Anemia, unspecified; E78.2 Mixed hyperlipidemia; I25.10 Atherosclerotic heart disease of native coronary artery without angina pectoris; E10.65 Type 1 diabetes mellitus with hyperglycemia; I25.2 Old myocardial infarction; I11.0 Hypertensive heart disease with heart failure; Z95.5 Presence of coronary angioplasty implant and graft; Z90.49 Acquired absence of other specified parts of digestive tract; Z82.5 Family history of asthma and other chronic lower respiratory diseases; Z82.49 Family history of ischemic heart disease and other diseases of the circulatory system; Z83.3 Family history of diabetes mellitus; Z79.899 Other long term (current) drug therapy; Z68.26 Body mass index [BMI] 26.0-26.9, adult

== ENCOUNTER 2020-05-31 19:54 | Inpatient (IN) | payer MEDICAID ==
[~2020-05-31] VITALS: Ht 182.8 cm; Wt 79.1 kg
[~2020-05-31 19:54] MED LIST changes: +ALDACTONE25 M1 PO; +COLCHICINE0.6 M2 PO; +HUMALOG JU100 UNIT/1 SQ; +NITROSTAT0.4 MG SL; +VITAMIN D350 MC2 PO; +ZESTRIL,PRINIVIL5 MG PO
[2020-05-31 20:00] VITALS: BP 187/106
[2020-05-31 20:49] VITALS: BP 165/105
[2020-05-31 20:57] LABS: BASO % 0.6 % (0.0-1.0); EOS # 0.2 10*3/uL (0.0-0.4); EOS % 3.2 % (1.0-4.0); HEMATOCRIT 34.6 % (42.0-52.0); LYMPH # 1.5 10*3/uL (1.3-4.4); LYMPH % 23.2 % (27.0-41.0); MEAN CELL VOLUME 84.2 fl (80.0-94.0); MEAN CORPUSCULAR HGB CONC 33.2 g/dl (33.0-37.0); MEAN PLATELET VOLUME 9.7 fl (9.6-12.3); MONO # 0.7 10*3/uL (0.1-1.0); MONO % 9.9 % (3.0-9.0); NEUT # 4.2 10*3/uL (2.3-7.9); NEUT % 62.9 % (47.0-73.0); PLATELET COUNT AUTOMATED 319 10*3/uL (130-400); RED BLOOD COUNT 4.11 10*6/uL (4.50-5.90); RED CELL DISTRI WIDTH 11.5 % (0-14.5); WHITE BLOOD COUNT 6.6 10*3/uL (4.8-10.8)
[2020-05-31 21:14] LABS: ALBUMIN 3.1 gm/dl (3.1-4.5); ALKALINE PHOSPHATASE 96 U/L (45-117); BUN 29 mg/dl (7-24); CHLORIDE 102 mmol/L (98-107); CREATININE 0.96 mg/dL (0.70-1.30); POTASSIUM 4.4 mmol/L (3.5-5.1); SGOT/AST 11 IU/L (3-35); SGPT/ALT 16 U/L (12-78); SODIUM 136 mmol/L (136-145); TOTAL PROTEIN 7.9 gm/dL (6.4-8.2)
[2020-05-31 21:55] VITALS: BP 143/87
[2020-06-01 02:05] VITALS: BP 104/81
[2020-06-01 08:00] VITALS: BP 139/86
[2020-06-01 13:03] VITALS: BP 138/76
[2020-06-01 14:18] VITALS: BP 152/81
[2020-06-01 16:00] VITALS: BP 145/87
[2020-06-01 20:00] VITALS: BP 149/84
[2020-06-02] VITALS: BP 133/73
[2020-06-02 06:46] LABS: BASO # 0.1 10*3/uL (0.0-0.1); BASO % 0.7 % (0.0-1.0); EOS # 0.2 10*3/uL (0.0-0.4); EOS % 2.8 % (1.0-4.0); HEMATOCRIT 32.3 % (42.0-52.0); LYMPH # 1.4 10*3/uL (1.3-4.4); LYMPH % 20.3 % (27.0-41.0); MEAN CELL VOLUME 86.4 fl (80.0-94.0); MEAN CORPUSCULAR HGB 27.5 pg (27.0-31.0); MEAN CORPUSCULAR HGB CONC 31.9 g/dl (33.0-37.0); MEAN PLATELET VOLUME 9.7 fl (9.6-12.3); MONO # 0.8 10*3/uL (0.1-1.0); MONO % 10.9 % (3.0-9.0); NEUT # 4.5 10*3/uL (2.3-7.9); PLATELET COUNT AUTOMATED 302 10*3/uL (130-400); RED BLOOD COUNT 3.74 10*6/uL (4.50-5.90); RED CELL DISTRI WIDTH 11.8 % (0-14.5); WHITE BLOOD COUNT 6.9 10*3/uL (4.8-10.8)
[2020-06-02 07:04] LABS: ALBUMIN 2.5 gm/dl (3.1-4.5); BUN 22 mg/dl (7-24); CHLORIDE 109 mmol/L (98-107); CREATININE 0.71 mg/dL (0.70-1.30); POTASSIUM 4.2 mmol/L (3.5-5.1); SGOT/AST 7 IU/L (3-35); SGPT/ALT 13 U/L (12-78); SODIUM 140 mmol/L (136-145)
[2020-06-02 07:06] LABS: ALKALINE PHOSPHATASE 76 U/L (45-117); TOTAL PROTEIN 6.5 gm/dL (6.4-8.2)
[2020-06-02 08:00] VITALS: BP 156/85
[2020-06-02 12:00] VITALS: BP 163/77
[2020-06-02 16:00] VITALS: BP 171/91
[2020-06-02 20:00] VITALS: BP 137/65
[2020-06-03] VITALS: BP 135/82
[2020-06-03 08:00] VITALS: BP 143/85
[2020-06-03] MEDS ORDERED: CIPRO500 MG PO (11:28)
[2020-06-03 12:00] VITALS: BP 138/81
== END 2020-06-03 14:06 | disposition home or self-care (01) | DRG 420 ==
LOC: ED 19:54 → EDHOLD 23:29 → 5E 23:29
PROVIDERS: Emergency Medicine; Internal Medicine; ADMIT Emergency Medicine; ATTEND Emergency Medicine
PROC: 0H9NXZX Drainage of Left Foot Skin, External Approach, Diagnostic (ICD-10-PCS; principal; 2020-05-31)
DX: E10.69 Type 1 diabetes mellitus with other specified complication (principal); S91.332A Puncture wound without foreign body, left foot, initial encounter; I16.0 Hypertensive urgency; L03.116 Cellulitis of left lower limb; I25.10 Atherosclerotic heart disease of native coronary artery without angina pectoris; I50.32 Chronic diastolic (congestive) heart failure; D64.9 Anemia, unspecified; E78.5 Hyperlipidemia, unspecified; I11.0 Hypertensive heart disease with heart failure; E87.8 Other disorders of electrolyte and fluid balance, not elsewhere classified; E10.65 Type 1 diabetes mellitus with hyperglycemia; X58.XXXA Exposure to other specified factors, initial encounter; Y93.89 Activity, other specified; Y92.89 Other specified places as the place of occurrence of the external cause; Y99.8 Other external cause status; Z90.49 Acquired absence of other specified parts of digestive tract; Z82.5 Family history of asthma and other chronic lower respiratory diseases; Z79.82 Long term (current) use of aspirin; Z79.4 Long term (current) use of insulin; I31.4 Cardiac tamponade; E43 Unspecified severe protein-calorie malnutrition; E87.1 Hypo-osmolality and hyponatremia; Z22.321 Carrier or suspected carrier of Methicillin susceptible Staphylococcus aureus

== ENCOUNTER 2021-05-11 07:22 | Inpatient (IN) | payer MEDICAID ==
[~2021-05-11] VITALS: Ht 172.7 cm; Wt 86.2 kg
[~2021-05-11 07:22] MED LIST changes: +CIPRO500 MG PO
[2021-05-11 08:11] VITALS: BP 162/97
[2021-05-11 10:11] LABS: BASO % 0.5 % (0.0-1.0); EOS # 0.2 10*3/uL (0.0-0.4); EOS % 2.6 % (1.0-4.0); HEMATOCRIT 36.4 % (42.0-52.0); LYMPH # 1.4 10*3/uL (1.3-4.4); LYMPH % 17.3 % (27.0-41.0); MEAN CELL VOLUME 83.5 fl (80.0-94.0); MEAN CORPUSCULAR HGB CONC 33.5 g/dl (33.0-37.0); MEAN PLATELET VOLUME 9.7 fl (9.6-12.3); MONO # 0.8 10*3/uL (0.1-1.0); MONO % 10.5 % (3.0-9.0); NEUT # 5.4 10*3/uL (2.3-7.9); NEUT % 68.7 % (47.0-73.0); PLATELET COUNT AUTOMATED 296 10*3/uL (130-400); RED BLOOD COUNT 4.36 10*6/uL (4.50-5.90); RED CELL DISTRI WIDTH 12.9 % (0-14.5); WHITE BLOOD COUNT 7.8 10*3/uL (4.8-10.8)
[2021-05-11 10:21] LABS: ACT PARTIAL THROMBO TIME 25.8 SECONDS (20.0-32.1); INTERNATIONAL NORM RATIO 0.9 (2.0-3.5)
[2021-05-11 10:27] LABS: ALBUMIN 2.5 gm/dl (3.1-4.5); ALKALINE PHOSPHATASE 94 U/L (45-117); BUN 16 mg/dl (7-24); CHLORIDE 109 mmol/L (98-107); CREATININE 0.83 mg/dL (0.70-1.30); LIPASE 27 U/L (73-393); POTASSIUM 3.8 mmol/L (3.5-5.1); SGOT/AST 27 IU/L (3-35); SGPT/ALT 33 U/L (12-78); SODIUM 143 mmol/L (136-145); TOTAL PROTEIN 6.4 gm/dL (6.4-8.2)
[2021-05-11 19:57] VITALS: BP 157/96
[2021-05-11 20:35] VITALS: BP 162/88; BP 165/88
[2021-05-12 00:49] VITALS: BP 126/63
[2021-05-12 06:50] LABS: ALBUMIN 2.4 gm/dl (3.1-4.5); ALKALINE PHOSPHATASE 80 U/L (45-117); BUN 16 mg/dl (7-24); CHLORIDE 111 mmol/L (98-107); CHOLESTEROL 160 mg/dL (<200); CREATININE 0.78 mg/dL (0.70-1.30); LDL CHOLESTEROL 100 mg/dL (9-159); POTASSIUM 3.9 mmol/L (3.5-5.1); SGOT/AST 21 IU/L (3-35); SGPT/ALT 29 U/L (12-78); SODIUM 144 mmol/L (136-145); TRIGLYCERIDES 112 mg/dl (<150)
[2021-05-12 06:54] LABS: THYROID STIM HORMONE (HS) 0.689 uIU/ml (0.358-4.75)
[2021-05-12 06:56] LABS: BASO % 0.5 % (0.0-1.0); EOS # 0.1 10*3/uL (0.0-0.4); EOS % 1.2 % (1.0-4.0); HEMATOCRIT 33.5 % (42.0-52.0); LYMPH # 1.3 10*3/uL (1.3-4.4); LYMPH % 16.1 % (27.0-41.0); MEAN CORPUSCULAR HGB 28.2 pg (27.0-31.0); MEAN CORPUSCULAR HGB CONC 33.1 g/dl (33.0-37.0); MEAN PLATELET VOLUME 10.1 fl (9.6-12.3); MONO # 0.9 10*3/uL (0.1-1.0); MONO % 11.3 % (3.0-9.0); NEUT # 5.7 10*3/uL (2.3-7.9); NEUT % 70.7 % (47.0-73.0); PLATELET COUNT AUTOMATED 268 10*3/uL (130-400); RED BLOOD COUNT 3.94 10*6/uL (4.50-5.90); WHITE BLOOD COUNT 8.1 10*3/uL (4.8-10.8)
[2021-05-12 07:24] LABS: VITAMIN D, 25-HYDROXY 12.7 ng/mL (30-100)
[2021-05-12 08:00] VITALS: BP 160/88
[2021-05-12 12:00] VITALS: BP 143/84
[2021-05-12 16:38] VITALS: BP 152/94
[2021-05-12 20:19] VITALS: BP 157/92
[2021-05-13] VITALS: BP 151/93
[2021-05-13 08:00] VITALS: BP 145/90
[2021-05-13] MEDS ORDERED: ATORVASTATIN CA40 M1 PO (11:47)
[2021-05-13] MEDS ORDERED: LOSARTAN POTASS25 M1 PO (11:47)
[2021-05-13] MEDS ORDERED: METOPROLOL SUCC50 M1 PO (11:47)
[2021-05-13] MEDS ORDERED: ASPIRIN ADULT L81 M2 PO (11:47)
[2021-05-13] MEDS ORDERED: VIBRAMYCIN100 MG PO (11:50)
[2021-05-13] MEDS ORDERED: LANTUS SOL100 UNIT/1 SC (11:50)
[2021-05-13] MEDS ORDERED: INSULIN LI100 UNIT/2 SQ (11:57)
== END 2021-05-13 15:08 | disposition home or self-care (01) | DRG 383 ==
LOC: ED 07:22 → 5E 11:41 → EDHOLD 11:41 → 5E 20:15
PROVIDERS: Emergency Medicine; Registered Nurse; ADMIT Internal Medicine; ATTEND Internal Medicine
DX: L03.115 Cellulitis of right lower limb (principal); L03.116 Cellulitis of left lower limb; I25.10 Atherosclerotic heart disease of native coronary artery without angina pectoris; E43 Unspecified severe protein-calorie malnutrition; I11.0 Hypertensive heart disease with heart failure; E78.5 Hyperlipidemia, unspecified; I50.32 Chronic diastolic (congestive) heart failure; I25.5 Ischemic cardiomyopathy; D64.9 Anemia, unspecified; E10.40 Type 1 diabetes mellitus with diabetic neuropathy, unspecified; S90.425A Blister (nonthermal), left lesser toe(s), initial encounter; S90.424A Blister (nonthermal), right lesser toe(s), initial encounter; X58.XXXA Exposure to other specified factors, initial encounter; Y93.89 Activity, other specified; Y92.89 Other specified places as the place of occurrence of the external cause; Y99.8 Other external cause status; Z91.14 Patient's other noncompliance with medication regimen; I25.2 Old myocardial infarction; Z82.5 Family history of asthma and other chronic lower respiratory diseases; Z90.49 Acquired absence of other specified parts of digestive tract; Z95.5 Presence of coronary angioplasty implant and graft; Z68.28 Body mass index [BMI] 28.0-28.9, adult

== ENCOUNTER 2021-08-04 07:16 | Emergency (ER) | payer MEDICAID ==
[~2021-08-04] VITALS: Wt 81.6 kg
[~2021-08-04 07:16] MED LIST changes: +ATORVASTATIN CA40 M1 PO; +INSULIN LI100 UNIT/2 SQ; +LANTUS SOL100 UNIT/1 SC; +LOSARTAN POTASS25 M1 PO; +VIBRAMYCIN100 MG PO; +VITAMIN D31250 MCG PO
[2021-08-04 08:33] LABS: BASO % 0.4 % (0.0-1.0); EOS % 0.2 % (1.0-4.0); HEMATOCRIT 28.7 % (42.0-52.0); LYMPH # 0.4 10*3/uL (1.3-4.4); LYMPH % 8.1 % (27.0-41.0); MEAN CELL VOLUME 82.7 fl (80.0-94.0); MEAN CORPUSCULAR HGB 26.8 pg (27.0-31.0); MEAN CORPUSCULAR HGB CONC 32.4 g/dl (33.0-37.0); MEAN PLATELET VOLUME 9.7 fl (9.6-12.3); MONO # 0.3 10*3/uL (0.1-1.0); NEUT # 4.5 10*3/uL (2.3-7.9); NEUT % 85.1 % (47.0-73.0); PLATELET COUNT AUTOMATED 204 10*3/uL (130-400); RED BLOOD COUNT 3.47 10*6/uL (4.50-5.90); RED CELL DISTRI WIDTH 12.9 % (0-14.5); WHITE BLOOD COUNT 5.3 10*3/uL (4.8-10.8)
[2021-08-04 08:48] LABS: ALKALINE PHOSPHATASE 92 U/L (45-117); BUN 27 mg/dl (7-24); CHLORIDE 105 mmol/L (98-107); CREATININE 1.04 mg/dL (0.70-1.30); POTASSIUM 4.1 mmol/L (3.5-5.1); SGOT/AST 26 IU/L (3-35); SGPT/ALT 32 U/L (12-78); SODIUM 135 mmol/L (136-145); TOTAL PROTEIN 6.1 gm/dL (6.4-8.2)
[2021-08-04] MEDS ORDERED: VIBRA-TAB100 MG PO (13:06)
[2021-08-04] MEDS ORDERED: TAMIFLU 75MG CA75 MG PO (13:06)
[2021-08-04] MEDS ORDERED: ZOFRAN4 MG PO (13:06)
== END 2021-08-04 13:03 | disposition home or self-care (01) ==
LOC: ED 07:16
PROVIDERS: Emergency Medicine
DX: J18.9 Pneumonia, unspecified organism (principal); Z20.822 Contact with and (suspected) exposure to COVID-19; R11.2 Nausea with vomiting, unspecified; Z90.49 Acquired absence of other specified parts of digestive tract; Z98.890 Other specified postprocedural states

== ENCOUNTER → 2021-08-17 | Outpatient (CLI) | payer MEDICAID ==
[~2021-08-17] MED LIST changes: +TAMIFLU 75MG CA75 MG PO; +VIBRA-TAB100 MG PO; +ZOFRAN4 MG PO
== END | disposition home or self-care (01) ==
LOC: RESCLI 01:51
PROVIDERS: ATTEND Internal Medicine Nephrology
DX: E10.43 Type 1 diabetes mellitus with diabetic autonomic (poly)neuropathy (principal); I10 Essential (primary) hypertension; E55.9 Vitamin D deficiency, unspecified; Z79.899 Other long term (current) drug therapy; Z79.82 Long term (current) use of aspirin

== ENCOUNTER → 2021-09-13 | Outpatient (CLI) | payer MEDICAID | END | disposition home or self-care (01) | LOC: CT 15:51 | PROVIDERS: ATTEND Internal Medicine Cardiovascular Disease | DX: R91.1 Solitary pulmonary nodule (principal); K82.9 Disease of gallbladder, unspecified ==

== ENCOUNTER → 2021-09-21 | Outpatient (CLI) | payer BC, MEDICAID | END | disposition home or self-care (01) | LOC: RESCLI 02:58 | PROVIDERS: ATTEND Internal Medicine | DX: E04.1 Nontoxic single thyroid nodule (principal); I10 Essential (primary) hypertension; E55.9 Vitamin D deficiency, unspecified; E10.43 Type 1 diabetes mellitus with diabetic autonomic (poly)neuropathy; Z79.899 Other long term (current) drug therapy; Z79.82 Long term (current) use of aspirin ==

== ENCOUNTER 2022-04-17 23:00 | Emergency (ER) | payer BC, MEDICAID ==
[~2022-04-17] VITALS: Ht 177.8 cm; Wt 81.6 kg
[2022-04-17 23:52] LABS: BASO % 0.7 % (0.0-1.0); EOS % 0.7 % (1.0-4.0); HEMATOCRIT 29.1 % (42.0-52.0); LYMPH # 0.5 10*3/uL (1.3-4.4); LYMPH % 8.6 % (27.0-41.0); MEAN CELL VOLUME 87.1 fl (80.0-94.0); MEAN CORPUSCULAR HGB 28.4 pg (27.0-31.0); MEAN CORPUSCULAR HGB CONC 32.6 g/dl (33.0-37.0); MEAN PLATELET VOLUME 9.2 fl (9.6-12.3); MONO # 0.7 10*3/uL (0.1-1.0); MONO % 12.4 % (3.0-9.0); NEUT # 4.3 10*3/uL (2.3-7.9); NEUT % 77.4 % (47.0-73.0); PLATELET COUNT AUTOMATED 207 10*3/uL (130-400); RED BLOOD COUNT 3.34 10*6/uL (4.50-5.90); RED CELL DISTRI WIDTH 13.3 % (0-14.5); WHITE BLOOD COUNT 5.6 10*3/uL (4.8-10.8)
[2022-04-18 00:09] LABS: ALKALINE PHOSPHATASE 76 U/L (46-116); BUN 38 mg/dl (9-23); CHLORIDE 106 mmol/L (98-107); CREATININE 1.28 mg/dL (0.70-1.30); SGPT/ALT 17 U/L (10-49); TOTAL PROTEIN 5.9 gm/dL (6.0-8.0)
[2022-04-20] MEDS ORDERED: COREG12.5 M1 PO (21:51)
[2022-04-20] MEDS ORDERED: COZAAR50 M1 PO (21:51)
[2022-04-20] MEDS ORDERED: LANTUS SOL100 UNIT/1 SC (21:52)
[2022-04-23] MEDS ORDERED: MUCINEX ER600 MG PO (11:22)
[2022-04-23] MEDS ORDERED: METOPROLOL SUCC50 M1 PO (11:22)
[2022-04-23] MEDS ORDERED: LEVOFLOXACIN750 M2 PO (11:22)
[2022-04-23] MEDS ORDERED: ATORVASTATIN CA40 M1 PO (11:22)
[2022-04-23] MEDS ORDERED: FUROSEMIDE40 MG PO (11:22)
[2022-04-23] MEDS ORDERED: COZAAR50 M1 PO (15:02)
[2022-04-23] MEDS ORDERED: K-TAB20 MEQ PO (15:02)
== END 2022-04-18 02:26 | disposition home or self-care (01) ==
LOC: ED 23:00
PROVIDERS: Internal Medicine
DX: B34.9 Viral infection, unspecified (principal); Z20.822 Contact with and (suspected) exposure to COVID-19; N17.9 Acute kidney failure, unspecified; D64.9 Anemia, unspecified; E44.0 Moderate protein-calorie malnutrition; E11.65 Type 2 diabetes mellitus with hyperglycemia; I25.2 Old myocardial infarction; I25.10 Atherosclerotic heart disease of native coronary artery without angina pectoris; I10 Essential (primary) hypertension; Z90.49 Acquired absence of other specified parts of digestive tract; Z98.890 Other specified postprocedural states

== ENCOUNTER → 2022-05-06 | Outpatient (CLI) | payer BC, MEDICAID ==
[~2022-05-06] MED LIST changes: +COREG12.5 M1 PO; +COZAAR50 M1 PO; +FUROSEMIDE40 MG PO; +K-TAB20 MEQ PO; +LEVOFLOXACIN750 M2 PO; +MUCINEX ER600 MG PO
[2022-05-06 17:05] LABS: BASO # 0.1 10*3/uL (0.0-0.1); BASO % 1.2 % (0.0-1.0); EOS # 0.1 10*3/uL (0.0-0.4); EOS % 1.2 % (1.0-4.0); HEMATOCRIT 25.9 % (42.0-52.0); LYMPH # 1.5 10*3/uL (1.3-4.4); LYMPH % 19.2 % (27.0-41.0); MEAN CELL VOLUME 87.2 fl (80.0-94.0); MEAN CORPUSCULAR HGB 28.3 pg (27.0-31.0); MEAN CORPUSCULAR HGB CONC 32.4 g/dl (33.0-37.0); MONO # 0.6 10*3/uL (0.1-1.0); MONO % 7.9 % (3.0-9.0); NEUT # 5.6 10*3/uL (2.3-7.9); NEUT % 70.1 % (47.0-73.0); PLATELET COUNT AUTOMATED 218 10*3/uL (130-400); RED BLOOD COUNT 2.97 10*6/uL (4.50-5.90); RED CELL DISTRI WIDTH 13.8 % (0-14.5)
[2022-05-06 17:28] LABS: ALKALINE PHOSPHATASE 128 U/L (46-116); BUN 48 mg/dl (9-23); CHLORIDE 100 mmol/L (98-107); CHOLESTEROL 98 mg/dL (<200); LDL CHOLESTEROL 38 mg/dL (9-159); POTASSIUM 4.4 mmol/L (3.4-5.1); SGPT/ALT 27 U/L (10-49); TOTAL PROTEIN 6.5 gm/dL (6.0-8.0); TRIGLYCERIDES 139 mg/dl (<150)
== END | disposition home or self-care (01) ==
LOC: RESCLI 15:01
PROVIDERS: Student in an Organized Health Care Education/Training Program; ATTEND Nurse Practitioner Family
DX: I11.0 Hypertensive heart disease with heart failure (principal); I50.30 Unspecified diastolic (congestive) heart failure; E11.9 Type 2 diabetes mellitus without complications; I25.10 Atherosclerotic heart disease of native coronary artery without angina pectoris; D64.9 Anemia, unspecified; E04.1 Nontoxic single thyroid nodule; E55.9 Vitamin D deficiency, unspecified; R22.2 Localized swelling, mass and lump, trunk; R11.0 Nausea; E78.5 Hyperlipidemia, unspecified; Z98.890 Other specified postprocedural states; Z82.49 Family history of ischemic heart disease and other diseases of the circulatory system; Z79.82 Long term (current) use of aspirin; Z79.899 Other long term (current) drug therapy

== ENCOUNTER → 2022-05-24 | Outpatient (CLI) | payer BC, MEDICAID ==
[~2022-05-24] MED LIST changes: +ENTRESTO 97 MG1 EACH PO; +JARDIANCE10 MG PO; +LIPITOR10 MG PO; +ONDANSETRON HYDR4 M1 PO
== END | disposition home or self-care (01) ==
LOC: RESCLI
PROVIDERS: ATTEND Internal Medicine
DX: Z53.9 Procedure and treatment not carried out, unspecified reason (principal)

== ENCOUNTER → 2022-06-09 | Outpatient (CLI) | payer BC, MEDICAID | END | disposition home or self-care (01) | LOC: US 10:18 | PROVIDERS: ATTEND Student in an Organized Health Care Education/Training Program | DX: E04.1 Nontoxic single thyroid nodule (principal) ==

== ENCOUNTER 2022-09-14 18:16 | Inpatient (IN) | payer BC, MEDICAID ==
[2022-09-14] VITALS (12 sets, daily range): BP systolic 86–135; BP diastolic 48–89
[~2022-09-14] VITALS: Ht 177.8 cm; Wt 81.6 kg
[2022-09-14 18:50] LABS: BASO % 0.3 % (0.0-1.0); EOS % 0.5 % (1.0-4.0); HEMATOCRIT 31.7 % (42.0-52.0); LYMPH # 0.4 10*3/uL (1.3-4.4); LYMPH % 6.6 % (27.0-41.0); MEAN CELL VOLUME 81.9 fl (80.0-94.0); MEAN CORPUSCULAR HGB 27.1 pg (27.0-31.0); MEAN CORPUSCULAR HGB CONC 33.1 g/dl (33.0-37.0); MEAN PLATELET VOLUME 9.4 fl (9.6-12.3); MONO # 0.5 10*3/uL (0.1-1.0); MONO % 7.8 % (3.0-9.0); NEUT % 84.6 % (47.0-73.0); PLATELET COUNT AUTOMATED 199 10*3/uL (130-400); RED BLOOD COUNT 3.87 10*6/uL (4.50-5.90); WHITE BLOOD COUNT 5.9 10*3/uL (4.8-10.8)
[2022-09-14 19:01] LABS: ACT PARTIAL THROMBO TIME 22.5 SECONDS (20.0-32.1); INTERNATIONAL NORM RATIO 0.9 (2.0-3.5)
[2022-09-14 19:11] LABS: POTASSIUM 5.9 mmol/L (3.4-5.1); TOTAL PROTEIN 6.9 gm/dL (6.0-8.0)
[2022-09-14 20:54] LABS: POTASSIUM 5.8 mmol/L (3.4-5.1)
[2022-09-14 22:13] LABS: BILIRUBIN Negative (Negative); BLOOD Trace-Lysed (Negative); CLARITY Clear (Clear); COLOR Yellow (Yellow); GLUCOSE 2+ (Negative); KETONE Negative (Negative); LEUKO ESTERASE Negative (Negative); NITRITE Negative (Negative); SPECIFIC GRAVITY 1.015 (1.001-1.030); UROBILINOGEN 0.2 E.U./dl (0.0-1.0)
[2022-09-14 22:44] LABS: BACTERIA TRACE; WBC 0-2 wbc/hpf (0-5)
[2022-09-14] MEDS ORDERED: CARVEDILOL12.5 MG PO (22:46)
[2022-09-15 00:49] VITALS: BP 88/57
[2022-09-15 02:11] VITALS: BP 95/63
[2022-09-15 02:57] VITALS: BP 96/61
[2022-09-15 03:43] LABS: BASO % 0.4 % (0.0-1.0); EOS % 0.2 % (1.0-4.0); HEMATOCRIT 27.1 % (42.0-52.0); LYMPH # 0.9 10*3/uL (1.3-4.4); LYMPH % 17.6 % (27.0-41.0); MEAN CORPUSCULAR HGB CONC 30.6 g/dl (33.0-37.0); MEAN PLATELET VOLUME 9.4 fl (9.6-12.3); MONO # 0.4 10*3/uL (0.1-1.0); MONO % 8.9 % (3.0-9.0); NEUT # 3.6 10*3/uL (2.3-7.9); NEUT % 72.7 % (47.0-73.0); PLATELET COUNT AUTOMATED 168 10*3/uL (130-400); RED BLOOD COUNT 3.19 10*6/uL (4.50-5.90); RED CELL DISTRI WIDTH 16.1 % (0-14.5); WHITE BLOOD COUNT 4.9 10*3/uL (4.8-10.8)
[2022-09-15 04:07] LABS: FREE T4 1.05 ng/dl (0.89-1.76); POTASSIUM 5.2 mmol/L (3.4-5.1); THYROID STIM HORMONE (HS) 1.405 uIU/ml (0.550-4.780); TOTAL PROTEIN 5.7 gm/dL (6.0-8.0)
[2022-09-15 04:20] VITALS: BP 111/74
[2022-09-15 04:44] VITALS: BP 116/77
[2022-09-15] MEDS ORDERED: CEFTRIAXONE1 GM IV (04:45)
[2022-09-15] MEDS ORDERED: AMERINET CHOIC500 MG IV (04:45)
[2022-09-15] MEDS ORDERED: HEPARIN 2525000 UNI1 IV (04:45)
[2022-09-16 09:07] LABS: HEMOGOLBIN A1C >15.5 % (4.8-5.6)
== END 2022-09-15 06:23 | disposition short-term general hospital (02) | DRG 871 ==
LOC: ED 18:16 → EDHOLD 22:05
PROVIDERS: Internal Medicine; Student in an Organized Health Care Education/Training Program; ADMIT Internal Medicine; ATTEND Internal Medicine
DX: A41.9 Sepsis, unspecified organism (principal); I21.4 Non-ST elevation (NSTEMI) myocardial infarction; J18.9 Pneumonia, unspecified organism; N17.0 Acute kidney failure with tubular necrosis; I50.43 Acute on chronic combined systolic (congestive) and diastolic (congestive) heart failure; I25.10 Atherosclerotic heart disease of native coronary artery without angina pectoris; R65.20 Severe sepsis without septic shock; I11.0 Hypertensive heart disease with heart failure; E11.65 Type 2 diabetes mellitus with hyperglycemia; E87.5 Hyperkalemia; D64.9 Anemia, unspecified; E87.8 Other disorders of electrolyte and fluid balance, not elsewhere classified; E78.5 Hyperlipidemia, unspecified; I25.2 Old myocardial infarction; Z82.5 Family history of asthma and other chronic lower respiratory diseases; Z82.49 Family history of ischemic heart disease and other diseases of the circulatory system; Z79.82 Long term (current) use of aspirin; Z79.2 Long term (current) use of antibiotics; Z79.899 Other long term (current) drug therapy; Z79.4 Long term (current) use of insulin

== ENCOUNTER → 2022-12-28 | Outpatient (CLI) | payer BC, MEDICAID ==
[~2022-12-28] MED LIST changes: +AMERINET CHOIC500 MG IV; +CARVEDILOL12.5 MG PO; +CEFTRIAXONE1 GM IV; +HEPARIN 2525000 UNI1 IV
== END | disposition home or self-care (01) ==
LOC: CARD 00:56
PROVIDERS: ATTEND Internal Medicine Cardiovascular Disease
DX: I34.0 Nonrheumatic mitral (valve) insufficiency (principal); I51.7 Cardiomegaly; I50.9 Heart failure, unspecified

== ENCOUNTER → 2023-01-03 | Outpatient (CLI) | payer BC, MEDICAID | END | disposition home or self-care (01) | LOC: CARD 07:47 | PROVIDERS: ATTEND Internal Medicine Cardiovascular Disease | DX: I50.9 Heart failure, unspecified (principal) ==

== ENCOUNTER 2023-04-27 14:17 | Inpatient (IN) | payer BC, MEDICAID ==
[~2023-04-27] VITALS: Ht 175.2 cm; Wt 81.2 kg
[2023-04-27 15:59] VITALS: BP 109/80
[2023-04-27 18:20] VITALS: BP 120/80
[2023-04-27 18:35] LABS: BASO % 0.5 % (0.0-1.0); EOS # 0.3 10*3/uL (0.0-0.4); EOS % 3.8 % (1.0-4.0); HEMATOCRIT 35.1 % (42.0-52.0); MEAN CELL VOLUME 81.4 fl (80.0-94.0); MEAN CORPUSCULAR HGB 27.4 pg (27.0-31.0); MEAN CORPUSCULAR HGB CONC 33.6 g/dl (33.0-37.0); MEAN PLATELET VOLUME 10.4 fl (9.6-12.3); MONO # 0.7 10*3/uL (0.1-1.0); MONO % 7.4 % (3.0-9.0); NEUT # 6.7 10*3/uL (2.3-7.9); PLATELET COUNT AUTOMATED 284 10*3/uL (130-400); RED BLOOD COUNT 4.31 10*6/uL (4.50-5.90); RED CELL DISTRI WIDTH 14.2 % (0-14.5); WHITE BLOOD COUNT 8.7 10*3/uL (4.8-10.8)
[2023-04-27 18:47] LABS: ACT PARTIAL THROMBO TIME 24.5 SECONDS (20.0-32.1)
[2023-04-27 19:02] LABS: TOTAL PROTEIN 6.4 gm/dL (6.0-8.0)
[2023-04-27] MEDS ORDERED: LIPITOR40 MG PO (20:13)
[2023-04-27] MEDS ORDERED: METOCLOPRAMIDE10 MG PO (20:13)
[2023-04-27] MEDS ORDERED: ALDACTONE25 MG PO (20:14)
[2023-04-27] MEDS ORDERED: BUMETANIDE2 MG PO (20:14)
[2023-04-27] MEDS ORDERED: PROTONIX40 MG PO (20:14)
[2023-04-27] MEDS ORDERED: PLAVIX75 M1 PO (20:15)
[2023-04-27] MEDS ORDERED: FLOMAX0.4 MG PO (20:15)
[2023-04-27] MEDS ORDERED: TOPROL XL50 M1 PO (20:15)
[2023-04-27] MEDS ORDERED: LANTUS SOL100 UNIT/1 SC ×2 (20:16→20:18)
[2023-04-27] MEDS ORDERED: ISORDIL TITRADOS5 MG PO (20:19)
[2023-04-27 22:34] VITALS: BP 119/79
[2023-04-27 22:37] VITALS: BP 120/80
[2023-04-28 00:01] VITALS: BP 138/89
[2023-04-28 02:10] VITALS: BP 103/65
[2023-04-28 06:34] VITALS: BP 103/68
[2023-04-28 06:55] LABS: BASO % 0.6 % (0.0-1.0); EOS # 0.4 10*3/uL (0.0-0.4); EOS % 6.9 % (1.0-4.0); HEMATOCRIT 31.1 % (42.0-52.0); LYMPH # 1.4 10*3/uL (1.3-4.4); LYMPH % 21.4 % (27.0-41.0); MEAN CELL VOLUME 81.8 fl (80.0-94.0); MEAN CORPUSCULAR HGB 27.1 pg (27.0-31.0); MEAN CORPUSCULAR HGB CONC 33.1 g/dl (33.0-37.0); MEAN PLATELET VOLUME 10.6 fl (9.6-12.3); MONO # 0.6 10*3/uL (0.1-1.0); MONO % 8.8 % (3.0-9.0); NEUT # 3.9 10*3/uL (2.3-7.9); PLATELET COUNT AUTOMATED 262 10*3/uL (130-400); RED CELL DISTRI WIDTH 14.4 % (0-14.5); WHITE BLOOD COUNT 6.4 10*3/uL (4.8-10.8)
[2023-04-28 07:32] LABS: FREE T4 1.45 ng/dl (0.89-1.76); POTASSIUM 4.1 mmol/L (3.4-5.1); TOTAL PROTEIN 5.4 gm/dL (6.0-8.0)
[2023-04-28 08:26] LABS: VITAMIN D, 25-HYDROXY 12.4 ng/mL (30-100)
[2023-04-28 14:16] VITALS: BP 112/62
[2023-04-28 18:34] VITALS: BP 118/76
[2023-04-28 21:21] VITALS: BP 116/67
[2023-04-28] MEDS ORDERED: ENTRESTO 97 MG1 EACH PO (22:01)
[2023-04-28] MEDS ORDERED: VITAMIN C500 M4 PO (22:02)
[2023-04-28] MEDS ORDERED: ST. JOSEPH ASPI81 MG PO (22:03)
[2023-04-28] MEDS ORDERED: VITAMIN D350 MCG PO (22:04)
[2023-04-28] MEDS ORDERED: JARDIANCE10 MG PO (22:05)
[2023-04-28] MEDS ORDERED: FLUDROCORTISON0.1 MG PO (22:06)
[2023-04-28] MEDS ORDERED: SACUBITRIL-VALSARTAN PO (22:10)
[2023-04-28] MEDS ORDERED: AMIODARONE HYD200 MG PO (22:13)
[2023-04-28] MEDS ORDERED: HUMALOG100 UNIT/1 SQ (22:14)
[2023-04-29] VITALS: BP 110/66
[2023-04-29 06:09] LABS: BASO % 0.8 % (0.0-1.0); EOS # 0.4 10*3/uL (0.0-0.4); EOS % 8.7 % (1.0-4.0); HEMATOCRIT 26.2 % (42.0-52.0); LYMPH # 1.2 10*3/uL (1.3-4.4); LYMPH % 22.6 % (27.0-41.0); MEAN CORPUSCULAR HGB 27.4 pg (27.0-31.0); MEAN CORPUSCULAR HGB CONC 32.1 g/dl (33.0-37.0); MEAN PLATELET VOLUME 11.3 fl (9.6-12.3); MONO # 0.7 10*3/uL (0.1-1.0); MONO % 14.4 % (3.0-9.0); NEUT # 2.7 10*3/uL (2.3-7.9); NEUT % 53.3 % (47.0-73.0); PLATELET COUNT AUTOMATED 218 10*3/uL (130-400); RED BLOOD COUNT 3.07 10*6/uL (4.50-5.90); RED CELL DISTRI WIDTH 14.1 % (0-14.5); WHITE BLOOD COUNT 5.1 10*3/uL (4.8-10.8)
[2023-04-29 06:28] LABS: ALKALINE PHOSPHATASE 64 U/L (46-116); BUN 41 mg/dl (9-23); CHLORIDE 105 mmol/L (98-107); POTASSIUM 4.1 mmol/L (3.4-5.1); SGPT/ALT 7 U/L (5-49); TOTAL PROTEIN 4.7 gm/dL (6.0-8.0)
[2023-04-29 06:48] LABS: MEAN CELL VOLUME 85.3 fl (80.0-94.0)
[2023-04-29 08:00] VITALS: BP 107/69
[2023-04-29 12:00] VITALS: BP 105/72
[2023-04-29 16:00] VITALS: BP 112/71
[2023-04-29 20:00] VITALS: BP 114/60
[2023-04-29] MEDS ORDERED: FINASTERIDE5 M1 PO (22:29)
[2023-04-29] MEDS ORDERED: ZETIA10 MG PO (22:36)
== END 2023-04-30 02:20 | disposition short-term general hospital (02) | DRG 280 ==
LOC: ED 14:17 → EDHOLD 22:08 → 5E 04-28 21:12
PROVIDERS: Family Medicine; Internal Medicine; Nurse Practitioner; Student in an Organized Health Care Education/Training Program; ADMIT Internal Medicine; ATTEND Internal Medicine
DX: I21.4 Non-ST elevation (NSTEMI) myocardial infarction (principal); E43 Unspecified severe protein-calorie malnutrition; N17.0 Acute kidney failure with tubular necrosis; I50.22 Chronic systolic (congestive) heart failure; R65.10 Systemic inflammatory response syndrome (SIRS) of non-infectious origin without acute organ dysfunction; E87.1 Hypo-osmolality and hyponatremia; I25.810 Atherosclerosis of coronary artery bypass graft(s) without angina pectoris; E78.5 Hyperlipidemia, unspecified; I11.0 Hypertensive heart disease with heart failure; G93.31 Postviral fatigue syndrome; D64.9 Anemia, unspecified; E86.0 Dehydration; E11.65 Type 2 diabetes mellitus with hyperglycemia; E50.9 Vitamin A deficiency, unspecified; I51.3 Intracardiac thrombosis, not elsewhere classified; Z83.6 Family history of other diseases of the respiratory system; Z79.4 Long term (current) use of insulin; Z90.49 Acquired absence of other specified parts of digestive tract; I25.2 Old myocardial infarction; Z68.26 Body mass index [BMI] 26.0-26.9, adult

== ENCOUNTER 2024-04-16 21:13 | Emergency (ER) | payer BC, MEDICAID ==
[~2024-04-16] VITALS: Ht 175.2 cm; Wt 83.0 kg
[~2024-04-16 21:13] MED LIST changes: +AMIODARONE HYD200 MG PO; +BUMETANIDE2 MG PO; +Coumadin5 MG PO; +ENTRESTO 49 MG1 EACH PO; +FINASTERIDE5 M1 PO; +FLOMAX0.4 MG PO; +FLUDROCORTISON0.1 MG PO; +HUMALOG100 UNIT/1 SC; +HUMALOG100 UNIT/1 SQ; +ISORDIL TITRADOS5 MG PO; +LANTUS SOL100 UNIT/1 SQ; +LIPITOR40 MG PO; +METOCLOPRAMIDE10 MG PO; +PLAVIX75 M1 PO; +PROTONIX40 MG PO; +SACUBITRIL-VALSARTAN PO; +ST. JOSEPH ASPI81 MG PO; +TOPROL XL50 M1 PO; +TORSEMIDE20 MG PO; +VITAMIN C500 M4 PO; +VITAMIN D350 MCG PO; +ZETIA10 MG PO
[2024-04-16] MEDS ORDERED: Sulfamethoxazole/Trimethopri 1 TAB TAB PO ONE ×3 (21:55)
[2024-04-16] MEDS ORDERED: SEPTDS PO (21:56)
== END 2024-04-16 22:10 | disposition home or self-care (01) ==
LOC: ED 21:13
DX: L02.415 Cutaneous abscess of right lower limb (principal); E10.9 Type 1 diabetes mellitus without complications; Z91.018 Allergy to other foods; Z79.899 Other long term (current) drug therapy; Z79.01 Long term (current) use of anticoagulants; Z95.5 Presence of coronary angioplasty implant and graft; Z90.49 Acquired absence of other specified parts of digestive tract; Z98.890 Other specified postprocedural states

== ENCOUNTER 2024-04-19 17:58 | Inpatient (IN) | payer BC, MEDICAID ==
[~2024-04-19] VITALS: Ht 172.7 cm; Wt 82.6 kg
[~2024-04-19 17:58] MED LIST changes: +SEPTDS PO
[2024-04-19 18:10] VITALS: BP 131/78
[2024-04-19] MEDS ORDERED: LORazepam 2 MG/ML VIAL IV ONE (18:10)
[2024-04-19 18:23] LABS: HEMATOCRIT 27.9 % (42.0-52.0); MEAN CELL VOLUME 87.2 fl (80.0-94.0); MEAN CORPUSCULAR HGB 27.5 pg (27.0-31.0); MEAN CORPUSCULAR HGB CONC 31.5 g/dl (33.0-37.0); MEAN PLATELET VOLUME 10.4 fl (9.6-12.3); PLATELET COUNT AUTOMATED 245 10*3/uL (130-400); RED CELL DISTRI WIDTH 12.5 % (0-14.5); WHITE BLOOD COUNT 18.5 10*3/uL (4.8-10.8)
[2024-04-19 18:33] LABS: MANUAL DIFF REFLEX YES
[2024-04-19 18:53] LABS: PLATELET SUFFICIENCY NORMAL (NORMAL); TOTAL CELLS COUNTED 100 #CELLS
[2024-04-19 18:54] LABS: BURR CELLS MODERATE
[2024-04-19 19:02] LABS: POTASSIUM 5.3 mmol/L (3.4-5.1)
[2024-04-19] MEDS ORDERED: INSULIN REGULAR, HUMAN 1 UNIT/0.01 ML IV ONE (20:25)
[2024-04-19] MEDS ORDERED: SODIUM CHLORIDE 0.9% 1,000 ML IV ONE (20:25)
[2024-04-19] MEDS ORDERED: Piperacillin Sodium/Tazobact 50 ML IV ONE (20:35)
[2024-04-19] MEDS ORDERED: Vancomycin Hydrochloride 250 ML IV ONE (20:35)
[2024-04-19] MEDS ORDERED: POTASSIUM CHLORIDE 20 MEQ TAB PO PRN (21:10)
[2024-04-19] MEDS ORDERED: BISACODYL 10 MG SUPP R PRN (21:10)
[2024-04-19] MEDS ORDERED: TEMAZEPAM 15 MG CAP PO PRN (21:10)
[2024-04-19] MEDS ORDERED: ACETAMINOPHEN 325 MG TAB PO PRN (21:10)
[2024-04-19] MEDS ORDERED: BISACODYL 5 MG TAB PO PRN (21:10)
[2024-04-19] MEDS ORDERED: ACETAMINOPHEN 650 MG SUPP R PRN (21:10)
[2024-04-19] MEDS ORDERED: POTASSIUM CHLORIDE 20 MEQ/100 ML BAG IV PRN (21:10)
[2024-04-19] MEDS ORDERED: INSULIN REGULAR IN 0.9 % NACL 100 ML IV SCH (21:10)
[2024-04-19] MEDS ORDERED: Magnesium Hydroxide 30 ML UDC PO PRN (21:10)
[2024-04-19] MEDS ORDERED: Piperacillin Sodium/Tazobact 0 ML IV SCH (21:20)
[2024-04-19] MEDS ORDERED: SODIUM CHLORIDE 0.9% 500 ML IV SCH (21:20)
[2024-04-19 21:48] VITALS: BP 114/69
[2024-04-19] MEDS ORDERED: HEPARIN SODIUM 5,000 UNIT/ML VIAL SC SCH (22:00)
[2024-04-19 22:19] LABS: POTASSIUM 5.1 mmol/L (3.4-5.1)
[2024-04-19 23:39] LABS: VENOUS BLOOD GAS O2 SAT 79.7 % (60.0-85.0)
[2024-04-19] MEDS ORDERED: PHYTONADIONE 10 MG/ML PO ONE (23:55)
[2024-04-20] VITALS (8 sets, daily range): BP systolic 75–115; BP diastolic 44–62
[2024-04-20] MEDS ORDERED: SODIUM CHLORIDE 0.9% 500 ML IV SCH (00:05)
[2024-04-20] MEDS ORDERED: SODIUM BICARBONATE 150 MEQ in DEXTROSE 5% 1,000 ML IV SCH (01:50)
[2024-04-20] MEDS ORDERED: Piperacillin Sodium/Tazobact 2.25 GM in SODIUM CHLORIDE 0.9% 50 ML IV SCH (02:00)
[2024-04-20] MEDS ORDERED: DEXTROSE 5% 1,000 ML IV ONE (02:14)
[2024-04-20] MEDS ORDERED: PHYTONADIONE 5 MG in SODIUM CHLORIDE 0.9% 50 ML IV ONE (04:25)
[2024-04-20 04:46] LABS: ALKALINE PHOSPHATASE 105 U/L (46-116); BUN 107 mg/dl (9-23); CHLORIDE 98 mmol/L (98-107); FREE T4 1.33 ng/dl (0.89-1.76); POTASSIUM 4.9 mmol/L (3.4-5.1); SGPT/ALT 20 U/L (5-49); TOTAL PROTEIN 6.5 gm/dL (6.0-8.0)
[2024-04-20] MEDS ORDERED: PHYTONADIONE 10 MG/ML AMP ONE (04:50)
[2024-04-20 06:01] LABS: HEMATOCRIT 25.2 % (42.0-52.0); MEAN CORPUSCULAR HGB CONC 33.3 g/dl (33.0-37.0); MEAN PLATELET VOLUME 10.7 fl (9.6-12.3); PLATELET COUNT AUTOMATED 283 10*3/uL (130-400); RED CELL DISTRI WIDTH 12.6 % (0-14.5); WHITE BLOOD COUNT 17.8 10*3/uL (4.8-10.8)
[2024-04-20] MEDS ORDERED: SODIUM CHLORIDE 0.9% 500 ML IV ONE (06:15)
[2024-04-20 06:38] LABS: MANUAL DIFF REFLEX YES
[2024-04-20 07:04] LABS: BURR CELLS FEW; PLATELET SUFFICIENCY NORMAL (NORMAL); POLYCHROMASIA SLIGHT; TOTAL CELLS COUNTED 100 #CELLS
[2024-04-20] MEDS ORDERED: NOREPINEPHRINE BITARTRATE/D5W 250 ML IV SCH (07:25)
[2024-04-21] MEDS ORDERED: VANCOMYCIN/WATER FOR INJ (PEG) 250 ML IV SCH (06:00)
== END 2024-04-20 08:15 | disposition short-term general hospital (02) | DRG 871 ==
LOC: ED 17:58 → EDHOLD 20:57
PROVIDERS: Emergency Medicine; Student in an Organized Health Care Education/Training Program; ADMIT Internal Medicine; ATTEND Internal Medicine
DX: A41.9 Sepsis, unspecified organism (principal); E11.10 Type 2 diabetes mellitus with ketoacidosis without coma; R65.21 Severe sepsis with septic shock; N17.0 Acute kidney failure with tubular necrosis; L02.91 Cutaneous abscess, unspecified; E87.1 Hypo-osmolality and hyponatremia; I50.22 Chronic systolic (congestive) heart failure; N49.3 Fournier gangrene; I25.10 Atherosclerotic heart disease of native coronary artery without angina pectoris; D50.9 Iron deficiency anemia, unspecified; E87.5 Hyperkalemia; E87.8 Other disorders of electrolyte and fluid balance, not elsewhere classified; E83.51 Hypocalcemia; E83.41 Hypermagnesemia; R79.1 Abnormal coagulation profile; I25.2 Old myocardial infarction; Z95.1 Presence of aortocoronary bypass graft; Z95.5 Presence of coronary angioplasty implant and graft; Z82.5 Family history of asthma and other chronic lower respiratory diseases; Z88.8 Allergy status to other drugs, medicaments and biological substances; Z79.899 Other long term (current) drug therapy; Z90.49 Acquired absence of other specified parts of digestive tract

== ENCOUNTER → 2024-06-10 | Outpatient (CLI) | payer BC, MEDICAID | END | disposition home or self-care (01) | LOC: WOUNDCARE 00:29 | PROVIDERS: ATTEND Nurse Practitioner Family | DX: M72.6 Necrotizing fasciitis (principal); N49.3 Fournier gangrene; E10.622 Type 1 diabetes mellitus with other skin ulcer; L98.491 Non-pressure chronic ulcer of skin of other sites limited to breakdown of skin; A48.0 Gas gangrene; E55.9 Vitamin D deficiency, unspecified; E10.40 Type 1 diabetes mellitus with diabetic neuropathy, unspecified; E10.22 Type 1 diabetes mellitus with diabetic chronic kidney disease; I13.0 Hypertensive heart and chronic kidney disease with heart failure and stage 1 through stage 4 chronic kidney disease, or unspecified chronic kidney disease; N18.31 Chronic kidney disease, stage 3a; I50.9 Heart failure, unspecified; I25.10 Atherosclerotic heart disease of native coronary artery without angina pectoris; Z90.49 Acquired absence of other specified parts of digestive tract; Z96.642 Presence of left artificial hip joint; Z95.1 Presence of aortocoronary bypass graft; Z98.890 Other specified postprocedural states; Z79.4 Long term (current) use of insulin; Z79.899 Other long term (current) drug therapy ==

== ENCOUNTER → 2024-06-14 | Outpatient (CLI) | payer BC, MEDICAID | END | disposition home or self-care (01) | LOC: WOUNDCARE 04:56 | PROVIDERS: ATTEND Nurse Practitioner Family | DX: M72.6 Necrotizing fasciitis (principal); N49.3 Fournier gangrene; A48.0 Gas gangrene; E55.9 Vitamin D deficiency, unspecified; E10.40 Type 1 diabetes mellitus with diabetic neuropathy, unspecified; E10.22 Type 1 diabetes mellitus with diabetic chronic kidney disease; I13.0 Hypertensive heart and chronic kidney disease with heart failure and stage 1 through stage 4 chronic kidney disease, or unspecified chronic kidney disease; N18.31 Chronic kidney disease, stage 3a; I50.9 Heart failure, unspecified; I25.10 Atherosclerotic heart disease of native coronary artery without angina pectoris; Z90.49 Acquired absence of other specified parts of digestive tract; Z96.642 Presence of left artificial hip joint; Z95.1 Presence of aortocoronary bypass graft; Z98.890 Other specified postprocedural states; Z79.4 Long term (current) use of insulin; Z79.899 Other long term (current) drug therapy ==

== ENCOUNTER → 2024-06-17 | Outpatient (CLI) | payer BC, MEDICAID | END | disposition home or self-care (01) | LOC: WOUNDCARE 03:36 → CARD 03:36 | PROVIDERS: ATTEND Nurse Practitioner Family | DX: M72.6 Necrotizing fasciitis (principal); E10.52 Type 1 diabetes mellitus with diabetic peripheral angiopathy with gangrene; N49.3 Fournier gangrene; A48.0 Gas gangrene; I13.0 Hypertensive heart and chronic kidney disease with heart failure and stage 1 through stage 4 chronic kidney disease, or unspecified chronic kidney disease; E10.22 Type 1 diabetes mellitus with diabetic chronic kidney disease; N18.31 Chronic kidney disease, stage 3a; I50.9 Heart failure, unspecified; I25.10 Atherosclerotic heart disease of native coronary artery without angina pectoris; E10.40 Type 1 diabetes mellitus with diabetic neuropathy, unspecified; E55.9 Vitamin D deficiency, unspecified; Z96.642 Presence of left artificial hip joint; Z90.49 Acquired absence of other specified parts of digestive tract; Z95.1 Presence of aortocoronary bypass graft; Z98.890 Other specified postprocedural states; Z79.01 Long term (current) use of anticoagulants; Z79.4 Long term (current) use of insulin; Z79.899 Other long term (current) drug therapy ==

== ENCOUNTER → 2024-06-24 | Outpatient (CLI) | payer BC, MEDICAID | END | disposition home or self-care (01) | LOC: WOUNDCARE 01:34 | PROVIDERS: ATTEND Nurse Practitioner Family | DX: M72.6 Necrotizing fasciitis (principal); I10 Essential (primary) hypertension; A48.0 Gas gangrene; N49.3 Fournier gangrene; E10.40 Type 1 diabetes mellitus with diabetic neuropathy, unspecified; I13.0 Hypertensive heart and chronic kidney disease with heart failure and stage 1 through stage 4 chronic kidney disease, or unspecified chronic kidney disease; E10.22 Type 1 diabetes mellitus with diabetic chronic kidney disease; N18.31 Chronic kidney disease, stage 3a; I50.9 Heart failure, unspecified; I25.2 Old myocardial infarction; I25.10 Atherosclerotic heart disease of native coronary artery without angina pectoris; Z95.1 Presence of aortocoronary bypass graft; Z95.818 Presence of other cardiac implants and grafts; Z96.642 Presence of left artificial hip joint; Z90.49 Acquired absence of other specified parts of digestive tract; Z98.890 Other specified postprocedural states; Z79.4 Long term (current) use of insulin; Z79.899 Other long term (current) drug therapy ==

== ENCOUNTER → 2024-07-01 | Outpatient (CLI) | payer BC, MEDICAID | END | disposition home or self-care (01) | LOC: WOUNDCARE 01:41 | PROVIDERS: ATTEND Nurse Practitioner Family | DX: M72.6 Necrotizing fasciitis (principal); I13.0 Hypertensive heart and chronic kidney disease with heart failure and stage 1 through stage 4 chronic kidney disease, or unspecified chronic kidney disease; E10.22 Type 1 diabetes mellitus with diabetic chronic kidney disease; N18.31 Chronic kidney disease, stage 3a; I50.9 Heart failure, unspecified; E10.40 Type 1 diabetes mellitus with diabetic neuropathy, unspecified; E10.52 Type 1 diabetes mellitus with diabetic peripheral angiopathy with gangrene; N49.3 Fournier gangrene; E55.9 Vitamin D deficiency, unspecified; A48.0 Gas gangrene; Z90.49 Acquired absence of other specified parts of digestive tract; Z95.1 Presence of aortocoronary bypass graft; Z96.642 Presence of left artificial hip joint; Z98.890 Other specified postprocedural states; Z79.01 Long term (current) use of anticoagulants; Z79.4 Long term (current) use of insulin; Z79.899 Other long term (current) drug therapy ==

== ENCOUNTER → 2024-07-08 | Outpatient (CLI) | payer BC, MEDICAID | END | disposition home or self-care (01) | LOC: WOUNDCARE 02:25 | PROVIDERS: ATTEND Nurse Practitioner Family | DX: M72.6 Necrotizing fasciitis (principal); I13.0 Hypertensive heart and chronic kidney disease with heart failure and stage 1 through stage 4 chronic kidney disease, or unspecified chronic kidney disease; E10.22 Type 1 diabetes mellitus with diabetic chronic kidney disease; N18.31 Chronic kidney disease, stage 3a; I50.9 Heart failure, unspecified; E10.52 Type 1 diabetes mellitus with diabetic peripheral angiopathy with gangrene; N49.3 Fournier gangrene; A48.0 Gas gangrene; E10.40 Type 1 diabetes mellitus with diabetic neuropathy, unspecified; E55.9 Vitamin D deficiency, unspecified; I25.10 Atherosclerotic heart disease of native coronary artery without angina pectoris; Z90.49 Acquired absence of other specified parts of digestive tract; Z96.642 Presence of left artificial hip joint; Z95.1 Presence of aortocoronary bypass graft; Z98.890 Other specified postprocedural states; Z79.4 Long term (current) use of insulin; Z79.01 Long term (current) use of anticoagulants; Z79.899 Other long term (current) drug therapy ==

== ENCOUNTER → 2024-07-15 | Outpatient (CLI) | payer BC, MEDICAID | END | disposition home or self-care (01) | LOC: WOUNDCARE 00:57 | PROVIDERS: ATTEND Nurse Practitioner Family | DX: M72.6 Necrotizing fasciitis (principal); N49.3 Fournier gangrene; A48.0 Gas gangrene; I13.0 Hypertensive heart and chronic kidney disease with heart failure and stage 1 through stage 4 chronic kidney disease, or unspecified chronic kidney disease; E10.22 Type 1 diabetes mellitus with diabetic chronic kidney disease; N18.31 Chronic kidney disease, stage 3a; I50.9 Heart failure, unspecified; E10.40 Type 1 diabetes mellitus with diabetic neuropathy, unspecified; I25.2 Old myocardial infarction; I25.10 Atherosclerotic heart disease of native coronary artery without angina pectoris; Z95.1 Presence of aortocoronary bypass graft; Z96.642 Presence of left artificial hip joint; Z98.890 Other specified postprocedural states; Z79.4 Long term (current) use of insulin; Z79.899 Other long term (current) drug therapy ==

== ENCOUNTER → 2024-07-26 | Outpatient (CLI) | payer BC, MEDICAID | END | disposition home or self-care (01) | LOC: WOUNDCARE 01:52 | PROVIDERS: ATTEND Nurse Practitioner Family | DX: M72.6 Necrotizing fasciitis (principal); I13.0 Hypertensive heart and chronic kidney disease with heart failure and stage 1 through stage 4 chronic kidney disease, or unspecified chronic kidney disease; E10.22 Type 1 diabetes mellitus with diabetic chronic kidney disease; N18.31 Chronic kidney disease, stage 3a; I50.9 Heart failure, unspecified; E10.52 Type 1 diabetes mellitus with diabetic peripheral angiopathy with gangrene; A48.0 Gas gangrene; N49.3 Fournier gangrene; E10.40 Type 1 diabetes mellitus with diabetic neuropathy, unspecified; E55.9 Vitamin D deficiency, unspecified; Z95.1 Presence of aortocoronary bypass graft; Z90.49 Acquired absence of other specified parts of digestive tract; Z96.641 Presence of right artificial hip joint; Z98.890 Other specified postprocedural states; Z79.01 Long term (current) use of anticoagulants; Z79.4 Long term (current) use of insulin; Z79.899 Other long term (current) drug therapy ==

== ENCOUNTER → 2024-08-02 | Outpatient (CLI) | payer BC, MEDICAID | END | disposition home or self-care (01) | LOC: WOUNDCARE 01:18 | PROVIDERS: ATTEND Nurse Practitioner Family | DX: M72.6 Necrotizing fasciitis (principal); E10.622 Type 1 diabetes mellitus with other skin ulcer; L98.492 Non-pressure chronic ulcer of skin of other sites with fat layer exposed; E10.40 Type 1 diabetes mellitus with diabetic neuropathy, unspecified; E10.22 Type 1 diabetes mellitus with diabetic chronic kidney disease; I13.0 Hypertensive heart and chronic kidney disease with heart failure and stage 1 through stage 4 chronic kidney disease, or unspecified chronic kidney disease; N18.31 Chronic kidney disease, stage 3a; I50.9 Heart failure, unspecified; N49.3 Fournier gangrene; A48.0 Gas gangrene; I25.2 Old myocardial infarction; I25.10 Atherosclerotic heart disease of native coronary artery without angina pectoris; E55.9 Vitamin D deficiency, unspecified; Z95.1 Presence of aortocoronary bypass graft; Z90.49 Acquired absence of other specified parts of digestive tract; Z96.642 Presence of left artificial hip joint; Z98.890 Other specified postprocedural states; Z79.4 Long term (current) use of insulin; Z79.899 Other long term (current) drug therapy ==

== ENCOUNTER → 2024-08-09 | Outpatient (CLI) | payer BC, MEDICAID ==
[2024-08-09 09:00] LABS: POTASSIUM 4.4 mmol/L (3.4-5.1)
== END | disposition home or self-care (01) ==
LOC: LAB 01:31 → WOUNDCARE 01:31
PROVIDERS: Internal Medicine Cardiovascular Disease; ATTEND Nurse Practitioner Family
DX: I50.9 Heart failure, unspecified (principal)

== ENCOUNTER → 2024-08-27 | Outpatient (CLI) | payer BC, MEDICAID | END | disposition home or self-care (01) | LOC: WOUNDCARE 02:42 | PROVIDERS: ATTEND Nurse Practitioner Family | DX: M72.6 Necrotizing fasciitis (principal); E10.40 Type 1 diabetes mellitus with diabetic neuropathy, unspecified; E10.22 Type 1 diabetes mellitus with diabetic chronic kidney disease; I13.0 Hypertensive heart and chronic kidney disease with heart failure and stage 1 through stage 4 chronic kidney disease, or unspecified chronic kidney disease; N18.31 Chronic kidney disease, stage 3a; I50.20 Unspecified systolic (congestive) heart failure; I25.10 Atherosclerotic heart disease of native coronary artery without angina pectoris; I25.2 Old myocardial infarction; E55.9 Vitamin D deficiency, unspecified; N49.3 Fournier gangrene; A48.0 Gas gangrene; Z95.1 Presence of aortocoronary bypass graft; Z96.642 Presence of left artificial hip joint; Z90.49 Acquired absence of other specified parts of digestive tract; Z98.890 Other specified postprocedural states; Z79.4 Long term (current) use of insulin; Z79.899 Other long term (current) drug therapy ==